=== PATIENT | female | born 1950 | race Caucasian/White ===

== ENCOUNTER 2018-07-05 10:33 | Inpatient (IN) ==
[2018-07-05] MEDS ORDERED: METOPROLOL TARTRATE 1 MG/ML VIAL IV STA (10:51)
[2018-07-05 11:34] LABS: Basophils # (auto) 0.03 K/uL (0-0.2); Basophils % (auto) 0.4 %; Eosinophils # (auto) 0.23 K/uL (0-0.5); Hematocrit (blood only) 41.7 % (37-47); Hemoglobin 14.5 g/dL (12.0-16.0); Immature Granulocytes # (auto) 0.03 K/uL (0.00-0.02); Immature Granulocytes % (auto) 0.4 %; Lymphocytes % (auto) 29.1 %; Mean Corpuscular Hgb Conc 34.8 g/dL (32-36); Mean Corpuscular Volume 88.7 fL (80-100); Mean Platelet Volume 11.2 fL (7.4-10.4); Monocytes # (auto) 0.56 K/uL (0.11-0.59); Monocytes % (auto) 7.4 %; Neutrophils # (auto) 4.51 K/uL (1.4-6.5); Neutrophils % (auto) 59.7 %; Platelet Count 281 K/uL (130-400); RDW Coefficient of Variation 14.2 % (11.5-14.5); RDW Standard Deviation 45.9 fL (36.4-46.3); White Blood Count 7.56 K/uL (4.8-10.8)
--- NOTE | 2018-07-05 11:34 | XRay Report ---
XR chest 1V portable CLINICAL HISTORY: atrial fib COMPARISON STUDY: 06/20/2018 FINDINGS: The cardiac and mediastinal contours are normal. There is no evidence of focal pulmonary co nsolidation. There is no evidence of failure. No pleural effusions are visualized.[ IMPRESSION: No active disease in the chest. Electronically signed by: Maynor Melendez M.D. 07/05/2018 11:33 AM
[2018-07-05 11:51] LABS: Albumin Level 3.8 gm/dl (3.4-5.0); BUN Creatinine Ratio 15.3 (10-20); Calcium 9.8 mg/dl (8.5-10.1); Creatinine Clr Calc Pharmacy 57.9 ml/min; Est GFR (Non-African American) 46.6; Magnesium 2.2 mg/dl (1.8-2.4); Potassium 3.2 mmol/L (3.5-5.1)
--- NOTE | 2018-07-05 12:02 | Emergency Department Note ---
Entered by Kira Landers acting as a scribe for History of Present Illness General Chief complaint: Cardiac Assessment Stated complaint: RAPID HEART RATE Source: patient Mode of arrival: ambulatory Limitations: no limitations History of Present Illness Provider complaint: Cardiac assessment Onset (ago): hour(s) (today) Location: chest Pain Consistency: + other (episode) Quality: + other (cardiac assessment for tachycardia) Associated symptoms: + other (Additional symptoms: leg cramp (now-resolved)); no chest pain The patient is a 67 year old female with a history of pericarditis and a UTI who presents to the Emergency Room with complaints of palpitations starting earlier today. The patient reports that she had an ablation on June 17 in [place]. She states that she subsequently saw Dr. Larkin and had a few medication changes but was otherwise doing well. However, she notes that she experienced a leg cramp last night and consequently had difficulty falling asleep. She reports that she then woke up this morning and thought that she was in atrial fibrillation. The p atient states that her EKG on her phone indicated a tachycardic heart rate. She notes that her heart did not stop racing although she did not have any chest pain. Per , the patient's heart rate finally seemed to slow after the patient had a sneezing fit on the way to the ED. The patient reports that she is on Eloquis and was taken off of Lisinopril this week. She adds that she was also taken off Metoprolol a while ago. Home Medications Home Medications Medication Instructions Recorded Confirmed Type acetaminophen [Tylenol Extra 500 mg PO Q6H PRN 06/20/18 07/05/18 History Strength] acetaminophen [Tylenol] 325 mg PO Q6H PRN 06/20/18 07/05/18 History amiodarone 200 mg PO BID 06/20/18 07/05/18 History apixaban [Eliquis] 5 mg PO BID 06/20/18 07/05/18 History coenzyme Q10 [CoQ-10] 100 mg PO QDL 06/20/18 07/05/18 History furosemide 40 mg PO QAM 06/20/18 07/05/18 History lorazepam 0.5 mg PO DAILY PRN 06/20/18 07/05/18 History omeprazole 40 mg PO QAM 06/20/18 07/05/18 History vit B comp no.7-hqoal-G-biotin 1 tab PO QDL 06/20/18 07/05/18 History [[facility] Rx] vitamin E 400 unit PO QDL 06/20/18 07/05/18 History colchicine 0.6 mg PO QDL 07/05/18 07/05/18 History spironolactone 25 mg PO QAM 07/05/18 07/05/18 History Allergies Allergy/AdvReac Type Severity Reaction Status Date / Time amlodipine AdvReac Severe headach/vom Unverified 07/05/18 12:18 itting Penicillins AdvReac Unknown Unknown Unverified 07/05/18 12:18 ChloraPrep AdvReac Intermediate red, itchy Uncoded 07/05/18 12:18 Past Med/Surg History Medical History DVT prophylaxis Hypokalemia (Acute) History of pericarditis Atrial fibrillation with RVR (Chronic) Pericarditis (Acute) UTI (urinary tract infection) (Acute) Elevated troponin (Acute) Atrial fibrillation Surgical History Status post creation of pericardial window Social History Preferred Language: Amharic Communication Ability: Effective Systems Librarian Required: No Beliefs That Will Affect Care: None marital status: Current Living Situation: Spouse current occupational status: retired Other Information That Helps Us Care for You: No Feels Safe at Home: Yes Safety Concerns: Feels Safe At This Time Smoking Status: Never smoker Do You Dip or Chew Tobacco: No Second Hand Exposure: No Tobacco Cessation Education Requested by Patient: No Hx Alcohol Use: No Hx Substance Use: No Review of Systems See HPI for pertinent positives & negatives. and A total of 10 systems reviewed and were otherwise negative Physical Exam Vital Signs Vital Signs - 24 hr 07/06/18 03:45 07/06/18 08:00 07/06/18 08:14 Temperature 36.4 C L 36.7 C Temperature Source Oral Oral Pulse Rate 90 Pulse Rate [Right Finger] 88 108 H Respiratory Rate 18 19 Blood Pressure Blood Pressure [Right Arm] 105/53 L 120/72 Blood Pressure Mean [Right Arm] 70 88 Blood Pressure Position [Right Arm] Lying Sitting Pulse Oximetry 95 95 Oxygen Delivery Method CPAP 07/06/18 09:23 07/06/18 11:24 07/06/18 15:12 Temperature 36.6 C 36.6 C Temperature Source Oral Oral Pulse Rate 110 H Pulse Rate [Right Finger] 90 87 Respiratory Rate 19 19 Blood Pressure 120/72 Blood Pressure [Right Arm] 140/84 133/74 Blood Pressure Mean [Right Arm] 102 93 Blood Pressure Position [Right Arm] Sitting Sitting Pulse Oximetry 96 96 Oxygen Delivery Method Room Air Room Air 07/06/18 16:56 07/06/18 20:03 Temperature 36.4 C L Temperature Source Oral Pulse Rate 84 Pulse Rate [Right Finger] Respiratory Rate 18 Blood Pressure Blood Pressure [Right Arm] 161/76 H Blood Pressure Mean [Right Arm] 104 Blood Pressure Position [Right Arm] Pulse Oximetry 98 Oxygen Delivery Method Room Air Vital signs reviewed. General: Obese, generally well-appearing female, in no significant distress. HEENT: No scleral icterus, PERRLA, neck supple. Atraumatic. Cardiovascular: Regular rate and rapid rhythm with occasional ectopy, no extra sounds. Pulmonary: Clear to auscultation bilaterally, normal work of breathing. Abdomen: Soft, nontender, nondistended, positive bowel sounds. Musculoskeletal: Atraumatic, no peripheral edema. Neurologic: Patient awake alert and oriented x 3 Skin: Warm, dry, no rash Course 1048: The patient was evaluated in room C1B, and a complete history and physical examination were performed. 1308: I checked on the patient and updated her on her results. 1429: I reviewed the patient's case with Oriana Lopez. Dr. De La Rosa will evaluate the patient for further management. 1432: Upon reevaluation, the patient is resting comfortably. I discussed laboratory and radiographic results with her. She verbalized agreement of the treatment plan. The patient will be evaluated for further management and care. Consultations Consultation #1: I reviewed the patient's case with Oriana Lopez. Dr. De La Rosa will evaluate the patient for further management. Time: 14:29 Administered Medications Amiodarone HCl (Cordarone) 200 mg PO BID [facility] Stop: 08/04/18 20:59 Last Admin: 07/06/18 19:46 Dose: 200 mg Documented by: [id number] Admin: 07/06/18 07:37 Dose: 200 mg Documented by: [id number] Admin: 07/05/18 20:17 Dose: 200 mg Documented by: [id number] Apixaban (Eliquis) 5 mg PO BID [facility] Stop: 08/04/18 20:59 Last Admin: 07/06/18 19:46 Dose: 5 mg Documented by: [id number] Admin: 07/06/18 07:37 Dose: 5 mg Documented by: [id number] Admin: 07/05/18 20:17 Dose: 5 mg Documented by: [id number] Colchicine (Colcrys) 0.6 mg PO QDL [facility] Stop: 08/05/18 11:29 Last Admin: 07/06/18 11:33 Dose: 0.6 mg Documented by: [id number] Furosemide (Lasix) 40 mg PO QAM [facility] Stop: 08/05/18 08:59 Last Admin: 07/06/18 07:38 Dose: 40 mg Documented by: [id number] Amiodarone HCl/Dextrose (Nexterone / D5w) 360 mg in 200 mls @ 16.667 mls/hr IV .Q12H [facility] Stop: 08/05/18 14:54 Last Admin: 07/06/18 14:44 Dose: 0.5 mg/min, 16.7 mls/hr Documented by: [id number] Cosigned by: [id number] Lorazepam (Ativan) 0.5 mg PO DAILY PRN PRN Reason: Anxiety Stop: 08/04/18 15:57 Last Admin: 07/06/18 00:43 Dose: 0.5 mg Documented by: [id number] Pantoprazole Sodium (Protonix) 40 mg PO [facility]; Protocol Stop: 08/05/18 08:59 Last Admin: 07/06/18 07:38 Dose: 40 mg Documented by: [id number] Potassium Chloride (Klor-Con M10) 40 meq PO BID [facility] Stop: 07/07/18 21:01 Last Admin: 07/06/18 19:46 Dose: 40 meq Documented by: [id number] Admin: 07/06/18 09:23 Dose: Not Given Documented by: [id number] [facility]actone (Ald[facility]one) [facility] Stop: 08/05/18 08:59 Last Admin: 07/06/18 07:37 Dose: 25 mg Documented by: [id number] Vitamin B Complex/Folic Acid (Nephrocaps) 1 cap PO QDL [facility]; Protocol Stop: 08/05/18 11:29 Last Admin: 07/06/18 11:33 Dose: 1 cap Documented by: [id number] Vitamin E (Vitamin E) 400 units PO QDL [facility] Stop: 08/05/18 11:29 Last Admin: 07/06/18 11:33 Dose: 400 units Documented by: [id number] Discontinued Medications Amiodarone HCl/Dextrose (Nexterone / D5w) 150 mg in 100 mls @ 600 mls/hr IV ONE STA Stop: 07/06/18 09:03 Last Infusion: 07/06/18 09:34 Dose: 0 mls/hr Documented by: [id number] Cosigned by: [id number] Admin: 07/06/18 09:23 Dose: 600 mls/hr Documented by: [id number] Cosigned by: [id number] Amiodarone HCl/Dextrose (Nexterone / D5w) 360 mg in 200 mls @ 33.333 mls/hr IV .Q6H [facility] Stop: 07/06/18 14:59 Last Infusion: 07/06/18 14:44 Dose: 0 mg/min, 0 mls/hr Documented by: [id number] Cosigned by: [id number] Admin: 07/06/18 09:25 Dose: 1 mg/min, 33.3 mls/hr Documented by: [id number] Cosigned by: [id number] Metoprolol Succinate (Toprol Xl) 25 mg PO NOW STA Stop: 07/05/18 13:19 Last Admin: 07/05/18 13:35 Dose: 25 mg Documented by: [id number] Metoprolol Tartrate (Lopressor) 5 mg IV NOW STA Stop: 07/05/18 10:52 Last Admin: 07/05/18 11:10 Dose: 4 mg Documented by: [id number] Metoprolol Tartrate (Lopressor) 2.5 mg IV NOW STA Stop: 07/06/18 09:08 Last Admin: 07/06/18 09:23 Dose: 2.5 mg Documented by: [id number] Potassium Chloride (Klor-Con M20) 40 meq PO NOW STA Stop: 07/05/18 13:10 Last Admin: 07/05/18 13:34 Dose: 40 meq Documented by: [id number] Potassium Chloride (Klor-Con M20) 40 meq PO NOW STA Stop: 07/06/18 08:08 Last Admin: 07/06/18 08:27 Dose: 40 meq Documented by: [id number] Medical Decision Making Differential Diagnosis Differential diagnosis: Etiologies such as premature contractions, electrolyte abnormality, cardiac dysrhythmia, thyroid dysfunction, pulmonary embolism, infection, gastr ointestinal, as well as others were entertained. Medical Records Attestation: I reviewed the patient's medical records. Home Medications Current Medication List: was personally reviewed by me Laboratory Data Attestation: I reviewed the patient's lab results. Result diagrams: 07/05/18 11:08 07/06/18 06:07 Lab Results 07/05/18 07/05/18 07/05/18 Range/Units 11:08 11:08 13:21 WBC 7.56 (4.8-10.8) K/uL RBC 4.70 (4.2-5.4) M/uL Hgb 14.5 (12.0-16.0) g/dL Hct 41.7 (37-47) % MCV 88.7 (80-100) fL MCH 30.9 (25-34) pg MCHC 34.8 (32-36) g/dL RDW Std Deviation 45.9 (36.4-46.3) fL RDW Coeff of Cornell 14.2 (11.5-14.5) % Plt Count 281 (130-400) K/uL MPV 11.2 H (7.4-10.4) fL Immature Gran % (Auto) 0.4 % Neut % (Auto) 59.7 % Lymph % (Auto) 29.1 % [place] % (Auto) 7.4 % Eos % (Auto) 3.0 % Baso % (Auto) 0.4 % Immature Gran # (Auto) 0.03 H (0.00-0.02) K/uL Neut # (Auto) 4.51 (1.4-6.5) K/uL Lymph # (Auto) 2.20 (1.2-3.4) K/uL [place] # (Auto) 0.56 (0.11-0.59) K/uL Eos # (Auto) 0.23 (0-0.5) K/uL Baso # (Auto) 0.03 (0-0.2) K/uL Sodium 141 (136-145) mmol/L Potassium 3.2 L (3.5-5.1) mmol/L Chloride 107 (98-107) mmol/L Carbon Dioxide 25 (21-32) mmol/L Anion Gap 10.0 (3-11) BUN 19 H (7-18) mg/dl Creatinine 1.21 H (0.6-1.2) mg/dl Est Cr Clr Drug Dosing 57.9 ml/min Est GFR ( Amer) 54.0 Est GFR (Non-Af Amer) 46.6 BUN/Creatinine Ratio 15.3 (10-20) Glucose 107 H (70-99) mg/dl Calcium 9.8 (8.5-10.1) mg/dl Magnesium 2.2 (1.8-2.4) mg/dl Total Bilirubin 0.8 (0.2-1) mg/dl Direct Bilirubin (0-0.2) mg/dl AST 61 H (15-37) U/L ALT 90 H (12-78) U/L Alkaline Phosphatase 115 (45-117) U/L Troponin I 0.073 H* 0.123 H* (0-0.045) ng/ml Total Protein 7.3 (6.4-8.2) gm/dl Albumin 3.8 (3.4-5.0) gm/dl Globulin 3.5 (2.5-4.0) gm/dl Albumin/Globulin Ratio 1.1 (0.9-2) TSH 2.530 (0.300-4.500) uIu/ml 07/05/18 07/06/18 07/06/18 Range/Units 17:59 00:15 06:07 WBC (4.8-10.8) K/uL RBC (4.2-5.4) M/uL Hgb (12.0-16.0) g/dL Hct (37-47) % MCV (80-100) fL MCH (25-34) pg MCHC (32-36) g/dL RDW Std Deviation (36.4-46.3) fL RDW Coeff of Cornell (11.5-14.5) % Plt Count (130-400) K/uL MPV (7.4-10.4) fL Immature Gran % (Auto) % Neut % (Auto) % Lymph % (Auto) % [place] % (Auto) % Eos % (Auto) % Baso % (Auto) % Immature Gran # (Auto) (0.00-0.02) K/uL Neut # (Auto) (1.4-6.5) K/uL Lymph # (Auto) (1.2-3.4) K/uL [place] # (Auto) (0.11-0.59) K/uL Eos # (Auto) (0-0.5) K/uL Baso # (Auto) (0-0.2) K/uL Sodium 142 (136-145) mmol/L Potassium 3.3 L (3.5-5.1) mmol/L Chloride 107 (98-107) mmol/L Carbon Dioxide 25 (21-32) mmol/L Anion Gap 10.0 (3-11) BUN 22 H (7-18) mg/dl Creatinine 1.20 (0.6-1.2) mg/dl Est Cr Clr Drug Dosing 58.4 ml/min Est GFR ( Amer) 54.5 Est GFR (Non-Af Amer) 47.1 BUN/Creatinine Ratio 18.3 (10-20) Glucose 104 H (70-99) mg/dl Calcium 9.4 (8.5-10.1) mg/dl Magnesium (1.8-2.4) mg/dl Total Bilirubin (0.2-1) mg/dl Direct Bilirubin (0-0.2) mg/dl AST (15-37) U/L ALT (12-78) U/L Alkaline Phosphatase (45-117) U/L Troponin I 0.208 H* 0.221 H* (0-0.045) ng/ml Total Protein (6.4-8.2) gm/dl Albumin (3.4-5.0) gm/dl Globulin (2.5-4.0) gm/dl Albumin/Globulin Ratio (0.9-2) TSH (0.300-4.500) uIu/ml 07/06/18 Range/Units 06:07 WBC (4.8-10.8) K/uL RBC (4.2-5.4) M/uL Hgb (12.0-16.0) g/dL Hct (37-47) % MCV (80-100) fL MCH (25-34) pg MCHC (32-36) g/dL RDW Std Deviation (36.4-46.3) fL RDW Coeff of Cornell (11.5-14.5) % Plt Count (130-400) K/uL MPV (7.4-10.4) fL Immature Gran % (Auto) % Neut % (Auto) % Lymph % (Auto) % [place] % (Auto) % Eos % (Auto) % Baso % (Auto) % Immature Gran # (Auto) (0.00-0.02) K/uL Neut # (Auto) (1.4-6.5) K/uL Lymph # (Auto) (1.2-3.4) K/uL [place] # (Auto) (0.11-0.59) K/uL Eos # (Auto) (0-0.5) K/uL Baso # (Auto) (0-0.2) K/uL Sodium (136-145) mmol/L Potassium (3.5-5.1) mmol/L Chloride (98-107) mmol/L Carbon Dioxide (21-32) mmol/L Anion Gap (3-11) BUN (7-18) mg/dl Creatinine (0.6-1.2) mg/dl Est Cr Clr Drug Dosing ml/min Est GFR ( Amer) Est GFR (Non-Af Amer) BUN/Creatinine Ratio (10-20) Glucose (70-99) mg/dl Calcium (8.5-10.1) mg/dl Magnesium (1.8-2.4) mg/dl Total Bilirubin 0.7 (0.2-1) mg/dl Direct Bilirubin 0.2 (0-0.2) mg/dl AST 49 H (15-37) U/L ALT 84 H (12-78) U/L Alkaline Phosphatase 87 (45-117) U/L Troponin I 0.217 H* (0-0.045) ng/ml Total Protein 6.4 (6.4-8.2) gm/dl Albumin 3.2 L (3.4-5.0) gm/dl Globulin (2.5-4.0) gm/dl Albumin/Globulin Ratio (0.9-2) TSH (0.300-4.500) uIu/ml Imaging Data Radiologist's Impression: Radiology results as stated below per my review and the radiologist's interpretation: XR chest 1V portable CLINICAL HISTORY: atrial fib COMPARISON STUDY: 06/20/2018 FINDINGS: The cardiac and mediastinal contours are normal. There is no evidence of focal pulmonary consolidation. There is no evidence of failure. No pleural effusions are visualized.[ IMPRESSION: No active disease in the chest. Electronically signed by: Maynor Melendez M.D. 07/05/2018 11:33 AM ECG Data Attestation: I personally reviewed and interpreted this ECG as follows: Indication: other (cardiac assessment) Rate (beats per minute): 107 Rhythm: sinus tachycardia (wide complex) Findings: + other (QTC is 528), + PVC (likely in a pattern of trigeminy versus atrial fibrillation) and + RBBB Comparison ECG Date: from (06/20/18) Change: the following changes noted (The current trigeminy has replaced a normal sinus rhythm) Additional Comments: Second EKG findings: wide complex tachycardia likely to be atrial flutter, 138 BPM, prolonged QTC of 539, RBBB. Third EKG findings: rate controlled atrial flutter with variable AV block, 84 BPM, left anterior fascicular block, QTC is 555, RBBB. Blood Pressure Blood Pressure Findings: Normal blood pressure MDM Narrative This pt was evaluated and appeared to be anxious, but in no distress. IV access was obtained and lab work was drawn. Pt was placed on the cardiac mointor. IV metoprolol was adminstered for rapid atrial fib/ flutter. Rate improved. XR reveals is negative. Lab work reveals a mildly low K, 40 MEq was given. Po metoprolol was given 25 mg. Trop was elevated, likely demand mediated. It was repeated at 2.5 hrs and continued to rise. Pt is on Eliquis currently. Pt was d?w Dr. De La Rosa of the hospitalist service for further management. Pt and family are aware of the plan and agree. Impression & Plan Atrial fibrillation, rapid, Elevated troponin Discharge Plan Visit Data *Final* Discharge Date/Time: 07/05/18 15:21 Chief Complaint: Cardiac Assessment Stated Complaint: RAPID HEART RATE ED Provider: Jessenia Melvin Discharge Problem: Atrial fibrillation, rapid, Elevated troponin Patient Disposition: Admitted As Inpatient Discharge Instructions Interventions: ED Discharge Assessment Last Done: 07/05/18 15:21 The scribe's documentation has been prepared under my direction and personally reviewed by me in its entirety. I confirm that the note above accurately reflects all work, treatment, procedures, and medical decision making performed by me.
[2018-07-05 12:04] LABS: Albumin Globulin Ratio 1.1 (0.9-2); Bilirubin,Total 0.8 mg/dl (0.2-1); Globulin 3.5 gm/dl (2.5-4.0); Total Protein 7.3 gm/dl (6.4-8.2); Troponin I 0.073 ng/ml (0-0.045)
[2018-07-05] MEDS ORDERED: POTASSIUM CHLORIDE 20 MEQ TABCR PO STA (13:09)
[2018-07-05] MEDS ORDERED: METOPROLOL SUCC 25MG EXT REL TAB PO STA (13:18)
--- NOTE | 2018-07-05 15:05 | History & Physical Report ---
Date of Service July 05, 2018 Assessment & Plan (1) Atrial fibrillation with RVR: Her rate has been controlled with IV and oral metoprolol. Observation bed with telemetry. Continue amiodarone. Cardiology consultation pending Present on Admission?: Yes (2) Hypokalemia: Oral potassium given in the ED. Repeat level in the morning Present on Admission?: Yes (3) Elevated troponin: Telemetry. Serial troponin enzymes. Serial EKGs Present on Admission?: Yes (4) History of pericarditis: Stable (5) Status post creation of pericardial window: Stable (6) DVT prophylaxis: Continue Eliquis History of Present Illness Chief Complaint: Palpitations Primary Care Provider: Vince Wyatt MD 67-year-old female with a history of paroxysmal atrial fibrillation. She underwent a ablation treatment in April of this year. She recently had her amiodarone decreased from 3 times daily to twice daily dosing. She has been off metoprolol for some time according to her history. She awoke this morning with recurrent palpitations. She had no associated chest pain, shortness of breath, lightheadedness. She came to the ED for evaluation. She was found to be in recurrent atrial fibrillation with rapid ventricular rate. In the ED she was given intravenous metoprolol and oral Toprol-XL. She was also given a dose of potassium. Troponin is slightly elevated, probably from demand ischemia. No history of occlusive coronary artery disease. Currently she is asymptomatic and the atrial fibrillation is controlled. Vital signs are stable. She will be placed on observation at this time and cardiology will be consulted. Allergies Allergy/AdvReac Type Severity Reaction Status Date / Time amlodipine AdvReac Severe headach/vom Unverified 07/05/18 12:18 itting Penicillins AdvReac Unknown Unknown Unverified 07/05/18 12:18 ChloraPrep AdvReac Intermediate red, itchy Uncoded 07/05/18 12:18 Home Medications Home Medications Medication Instructions Recorded Confirmed Type acetaminophen [Tylenol Extra 500 mg PO Q6H PRN 06/20/18 07/05/18 History Strength] acetaminophen [Tylenol] 325 mg PO Q6H PRN 06/20/18 07/05/18 History amiodarone 200 mg PO BID 06/20/18 07/05/18 History apixaban [Eliquis] 5 mg PO BID 06/20/18 07/05/18 History coenzyme Q10 [CoQ-10] 100 mg PO QDL 06/20/18 07/05/18 History furosemide 40 mg PO QAM 06/20/18 07/05/18 History lorazepam 0.5 mg PO DAILY PRN 06/20/18 07/05/18 History omeprazole 40 mg PO QAM 06/20/18 07/05/18 History vit B comp no.1-qeuny-L-biotin 1 tab PO QDL 06/20/18 07/05/18 History [[facility] Rx] vitamin E 400 unit PO QDL 06/20/18 07/05/18 History colchicine 0.6 mg PO QDL 07/05/18 07/05/18 History spironolactone 25 mg PO QAM 07/05/18 07/05/18 History Past Med/Surg History Medical History Pericarditis (Acute) UTI (urinary tract infection) (Acute) Elevated troponin (Acute) Atrial fibrillation Social History Preferred Language: Turkish marital status: current occupational status: retired Feels Safe at Home: Yes Smoking Status: Never smoker Review of Systems Review of Systems: All systems reviewed & are unremarkable except as noted in HPI & below Physical Exam Constitutional: WD/WN, vitals as above Eyes: PERRL, conjunctivae normal, anicteric sclerae ENMT: external ear and nose normal, oropharynx normal Neck: trachea midline, no thyromegaly Respiratory: normal respiratory effort, lungs clear to auscultation Cardiovascular: Irregular rhythm. Normal S1 and S2. No murmur Gastrointestinal (Abdomen): normal bowel sounds, soft, nontender, no hepatosplenomegaly Musculoskeletal: no cyanosis or clubbing, extremities motor strength 5/5 Skin: no rashes, warm and dry Neurologic: CN's II-XI intact bilaterally and moves all extremities; no focal motor deficits Results & Data Vital Signs (Past 12 Hours) Vital Signs Temp Pulse Pulse Resp BP BP Pulse Ox 07/05/18 13:34 46 L 22 145/77 H 96 07/05/18 13:33 91 H 25 H 07/05/18 13:01 92 H 15 137/67 96 07/05/18 13:00 92 H 24 98 05/12/19 12:31 87 23 135/69 95 07/05/18 12:30 102 H 17 98 07/05/18 12:01 46 L 23 113/66 96 07/05/18 12:00 46 L 16 97 07/05/18 11:33 91 H 17 120/67 96 07/05/18 11:32 95 07/05/18 11:23 45 L 15 121/56 L 96 07/05/18 11:19 83 20 132/65 94 07/05/18 11:14 143 H 22 112/79 95 07/05/18 11:10 143 H 108/88 07/05/18 11:08 144 H 24 108/88 95 07/05/18 11:00 132 H 20 97/80 L 95 07/05/18 10:58 36.6 C 123 H 20 97/80 L 94 07/05/18 10:50 145 H 19 97 07/05/18 10:46 146 H 15 145/98 H 98 07/05/18 10:45 36.6 C 116 H 20 145/98 H 95 Laboratory Results 07/05/18 11:08 07/05/18 11:08
[2018-07-05] MEDS ORDERED: ZOLPIDEM TARTRATE 5 MG TAB PO PRN (15:58)
[2018-07-05] MEDS ORDERED: ACETAMINOPHEN 500 MG TAB PO PRN (15:58)
[2018-07-05] MEDS ORDERED: ACETAMINOPHEN 325 MG TAB PO PRN (15:58)
[2018-07-05] MEDS ORDERED: ONDANSETRON INJ 2 MG/ML 2 ML VIAL IV PRN (15:58)
[2018-07-05] MEDS ORDERED: ALUMINUM/MAGNESIUM SUSP 30 ML UDC PO PRN (15:58)
[2018-07-05] MEDS: APIXABAN 5 MG TABLET PO SCH (20:17)
[2018-07-05] MEDS: AMIODARONE 200 MG TAB PO SCH (20:17)
[2018-07-06] MEDS: LORazepam 0.5 MG TAB PO PRN ×2 (00:43→21:43)
[2018-07-06 07:17] LABS: BUN Creatinine Ratio 18.3 (10-20); Calcium 9.4 mg/dl (8.5-10.1); Creatinine Clr Calc Pharmacy 58.4 ml/min; Est GFR (African American) 54.5; Est GFR (Non-African American) 47.1; Potassium 3.3 mmol/L (3.5-5.1)
[2018-07-06] MEDS: SPIRONOLACTONE 25 MG TAB PO SCH (07:37)
[2018-07-06] MEDS: AMIODARONE 200 MG TAB PO SCH ×2 (07:37→19:46)
[2018-07-06] MEDS: APIXABAN 5 MG TABLET PO SCH ×2 (07:37→19:46)
[2018-07-06] MEDS: PANTOprazole 40 MG TAB PO SCH (07:38)
[2018-07-06] MEDS: FUROSEMIDE 40 MG TAB PO SCH (07:38)
[2018-07-06 07:57] LABS: Albumin Level 3.2 gm/dl (3.4-5.0); Bilirubin Direct 0.2 mg/dl (0-0.2); Bilirubin,Total 0.7 mg/dl (0.2-1); Total Protein 6.4 gm/dl (6.4-8.2); Troponin I 0.217 ng/ml (0-0.045)
[2018-07-06] MEDS ORDERED: POTASSIUM CHLORIDE 20 MEQ TABCR PO STA (08:07)
[2018-07-06] MEDS ORDERED: AMIODARONE IV BOLUS / DRIP IV STA (08:54)
[2018-07-06] MEDS ORDERED: AMIODARONE / D5W 150 MG/100 ML BAG IV STA (08:54)
[2018-07-06] MEDS ORDERED: AMIODARONE / D5W 360 MG/200 ML BAG IV SCH (09:00)
[2018-07-06] MEDS ORDERED: METOPROLOL TARTRATE 1 MG/ML VIAL IV STA (09:07)
[2018-07-06] MEDS: POTASSIUM CHLORIDE 10 MEQ TABCR PO SCH ×2 (09:23→19:46)
--- NOTE | 2018-07-06 10:21 | Hospitalist Progress Note ---
Date of Service July 06, 2018 Assessment & Plan (1) Atrial fibrillation with RVR: -patient with recent ablation in [place] with Dr. Powell. - amio gtt per cardiology in addition to po - continue telemetry monitoring - troponin peaked at 0.221 - likely demand ischemia from rapid rate on admission - continue Eliquis (2) Hypokalemia: replaced (3) Elevated troponin: See above (4) History of pericarditis: Stable (5) Status post creation of pericardial window: Stable (6) Elevated LFTs: AST and ALT peaked at 61 and 90 and are trending down. No abdominal pain, nausea or vomiting (7) DVT prophylaxis: Continue Eliquis Subjective Ms De La Vega feels somewhat better today though she does still have some exertional dyspnea. Her heart is no longer racing. She does not have chest pain. She has been in and out of A.fib on the monitor. Review of Systems Review of Systems: All systems reviewed & are unremarkable except as noted in HPI & below Physical Exam Physical Exam: General: no distress Eyes: normal inspection, PERLL Respiratory: chest non tender, clear to auscultation, normal breath sounds, no respiratory distress, no accessory muscle use Cardiac: regular rate and rhythm, no rub or gallop, no murmur, no edema, no jvd GI/: active bowel sounds, no abd pain or tenderness, soft, non distended Extremities: normal range of motion, normal strength, non tender Neuro/Psych: alert and oriented x 3, normal mood and affect Skin: normal color, dry Results & Data Vital Signs (Past 12 Hours) Vital Signs Temp Pulse Pulse Resp BP BP Pulse Ox 07/06/18 09:23 110 H 120/72 07/06/18 08:14 36.7 C 108 H 19 120/72 95 07/06/18 08:00 90 07/06/18 03:45 36.4 C L 88 18 105/53 L 95
--- NOTE | 2018-07-06 10:39 | Consultation Report ---
DATE OF CONSULTATION: 07/06/2018 REQUESTING PHYSICIAN: Oliverio De La Rosa MD X RAY TECHNOLOGIST: Sinan Larkin DO, [facility]. REASON FOR CONSULTATION: New onset atrial flutter. Dear Dr. De La Rosa: Thank you for requesting a cardiology consultation on Kat with regards to her atrial arrhythmias and recent AFib ablation in May 2018. She awoke Friday morning, she had worn her CPAP the night before. She described palpitations with feeling like she had fluttering into her throat. This sensation was different than her normal AFib sensation. She notes the rates were fast into the 170s and even 180s and she had some lightheadedness with it. She notes it made her feel significantly fatigued. She wanted to go to [place], it continued and given the fact she did not feel well, she came to the Emergency Room. An EKG reveals atypical atrial flutter with a rapid ventricular response and a right bundle branch block. She has been in the hospital overnight. She is still in atrial flutter at times with rates that remained fast. Emotionally, she seems spent with the idea that she just had an AFib ablation and has had a cardioversion and continues to have atrial arrhythmias. She denies any lightheadedness or dizziness this morning. She does not feel short of breath this morning. She denies any chest pain. Of note, she did have pericarditis after her procedure, she now can take a deep breath while on colchicine. She is not having any side effects related to colchicine. She denies any dark stools or black stools, bleeding or bruising. She is on chronic anticoagulation. She denies a cough, fevers, chills, or sweats. She notes in the morning when she wakes, her apnea-hypopnea index is around 2.2. The rest of review of systems is otherwise negative. PAST MEDICAL HISTORY: 1. Paroxysmal atrial fibrillation since 2016 with at least 7 cardioversions, status post AFib ablation, May 2018. 2. 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 3. Recurrent atrial arrhythmias June 2018 with atypical atrial flutter. 4. Hypertension, since the age of 20, which appears to be induced. 5. History of an RV biopsy July 2016, rule out amyloid disease which was negative. 6. Pericardial window secondary to pericardial effusion 10/2016. 7. Normal biventricular size and function by echo 02/2018 with moderate left atrial enlargement. 8. Chronic anticoagulation with Eliquis. 9. Fatty infiltration of her liver. 10. GERD. 11. Right bundle-branch block with left anterior fascicular block. FAMILY HISTORY: Dad at 45, stroke, he had a heart attack at 41. Mom from complications related to lymphoma. She had hypertension. SOCIAL HISTORY: She is . She denies any tobacco or alcohol. ALLERGIES: AMLODIPINE, CHLORHEXIDINE AND PENICILLIN. MEDICATIONS: Reviewed in electronic medical record. PHYSICAL EXAMINATION: GENERAL: She is awake, alert, oriented x3. She seems frustrated, given her recurrent atrial arrhythmias. VITAL SIGNS: Her heart rate is 108, her blood pressure is 120/72, respirations 19, her sats 95% on room air. HEENT: Her carotid upstrokes were difficult to feel given her rate, but they still appeared to be normal. Her jugular venous pressure was not elevated. She did not have carotid bruits. Her sclerae are anicteric. Her hearing is normal. LUNGS: Clear to auscultation bilaterally. No rales, rhonchi or wheezing. HEART: Irregular rate and rhythm. No appreciable murmurs, rubs or gallops. ABDOMEN: Soft, nontender, nondistended. Positive bowel sounds. EXTREMITIES: No clubbing, cyanosis or edema. PSYCHIATRIC: She appeared frustrated. DIAGNOSTIC STUDIES: EKG, atypical atrial flutter at a rate of 95 beats per minute, right bundle-branch block, left anterior fascicular block. LABORATORY STUDIES: Hemoglobin of 14.5, platelet count of 281. Peak troponin 0.221. Sodium 142, potassium 3.3, BUN 22, creatinine 1.2. TSH is normal at 2.53. Chest x-ray, no acute disease. IMPRESSION: 1. Recurrent atrial arrhythmias, now with atypical atrial flutter. 2. History of atrial fibrillation ablation, 05/2018. 3. Post-ablation pericarditis, 05/2018. 4. Obstructive sleep apnea, tolerating CPAP. 5. Normal biventricular size and function. 6. Chronic anticoagulation with apixaban. I made the following recommendations: 1. We will try to give her IV amiodarone with a bolus and drip and hopefully she will convert with amiodarone back into sinus rhythm. She has been on p.o. amiodarone for a month before her ablation and since her ablation. The other option if she does not convert, will be to consider cardioversion tomorrow. Unfortunately, she has had a significant number of cardioversions and she seems reluctant to consider this unless there are no other options. She remains on anticoagulation. I would try to give her a small dose of IV beta blockers and see if this helps convert her. In addition, she needs potassium replacement and I would check a magnesium level. We will continue to follow her with you. Further recommendations will be forthcoming. DESIREE
[2018-07-06] MEDS ORDERED: NON-FORMULARY MEDICATION (Coenzyme Q10 [Coq-10] 100 MG) PO SCH (11:30)
[2018-07-06] MEDS: TOCOPHERYL, DL-ALPHA 400 UNITS CAP PO SCH (11:33)
[2018-07-06] MEDS: NEPHROCAPS PO SCH (11:33)
[2018-07-06] MEDS: COLCHICINE 0.6 MG TAB PO SCH (11:33)
[2018-07-06] MEDS: AMIODARONE / D5W 360 MG/200 ML BAG IV SCH (14:44)
[2018-07-06] MEDS ORDERED: DiphenhydrAMINE 2%/ZINC 0.1% CREAM 28GM TUBE EXT ONE (21:45)
[2018-07-07] MEDS: AMIODARONE / D5W 360 MG/200 ML BAG IV SCH (02:27)
--- NOTE | 2018-07-07 07:28 | Anesthesiology Consultation ---
Date of Service July 07, 2018 Assessment & Plan (1) Encounter for pre-operative examination: Chart Review Chart Review: Acceptable Risk for Surgery History Surgery Operation Date: 07/07/18 07:45 Proposed Procedures p Cardioversion Development Technician with Anesthesia - Sinan Larkin DO Height/Weight Height: 5 ft 6 in Weight: 111 kg Allergies Allergy/AdvReac Type Severity Reaction Status Date / Time amlodipine AdvReac Severe headach/vom Unverified 07/05/18 12:18 itting Penicillins AdvReac Unknown Unknown Unverified 07/05/18 12:18 ChloraPrep AdvReac Intermediate red, itchy Uncoded 07/05/18 12:18 Medications Home Medications Medication Instructions Recorded Confirmed Last Taken acetaminophen [Tylenol Extra 500 mg PO Q6H PRN 06/20/18 07/05/18 06/20/18 14:00 Strength] acetaminophen [Tylenol] 325 mg PO Q6H PRN 06/20/18 07/05/18 06/20/18 08:00 amiodarone 200 mg PO BID 06/20/18 07/05/18 07/05/18 apixaban [Eliquis] 5 mg PO BID 06/20/18 07/05/18 07/05/18 coenzyme Q10 [CoQ-10] 100 mg PO QDL 06/20/18 07/05/18 07/04/18 furosemide 40 mg PO QAM 06/20/18 07/05/18 07/05/18 lorazepam 0.5 mg PO DAILY PRN 06/20/18 07/05/18 Unknown omeprazole 40 mg PO QAM 06/20/18 07/05/18 07/05/18 vit B comp no.1-[id number]-P-biotin 1 tab PO QDL 06/20/18 07/05/18 07/04/18 [Merced-Matteo Rx] vitamin E 400 unit PO QDL 06/20/18 07/05/18 07/04/18 colchicine 0.6 mg PO QDL 07/05/18 07/05/18 07/04/18 spironolactone 25 mg PO QAM 07/05/18 07/05/18 07/05/18 Active Medications Generic Name Dose Route Start Last Admin Trade Name Freq PRN Reason Stop Dose Admin Amiodarone HCl 200 mg 07/05/18 21:00 07/06/18 19:46 Cordarone PO 08/04/18 20:59 200 mg BID AYAH Administration Apixaban 5 mg 07/05/18 21:00 07/06/18 19:46 Eliquis PO 08/04/18 20:59 5 mg BID AYAH Administration Colchicine 0.6 mg 07/06/18 11:30 07/06/18 11:33 Colcrys PO 08/05/18 11:29 0.6 mg QDL AYAH Administration Furosemide 40 mg 07/06/18 09:00 07/06/18 07:38 Lasix PO 08/05/18 08:59 40 mg QAM AYAH Administration Amiodarone HCl/Dextrose 360 mg in 200 mls @ 16.667 mls/hr 07/06/18 14:55 07/07/18 02:27 Nexterone / D5w IV 08/05/18 14:54 0.5 mg/min .Q12H AYAH 16.7 mls/hr Administration 0.5 MG/MIN Lorazepam 0.5 mg 07/05/18 15:58 07/06/18 21:43 Ativan PO 08/04/18 15:57 0.5 mg DAILY PRN Administration Anxiety Pantoprazole Sodium 40 mg 07/06/18 09:00 07/06/18 07:38 Protonix PO 08/05/18 08:59 40 mg QAM AYAH Administration Protocol Potassium Chloride 40 meq 07/06/18 09:10 07/06/18 19:46 Klor-Con M10 PO 07/07/18 21:01 40 meq BID AYAH Administration Spironolactone 25 mg 07/06/18 09:00 07/06/18 07:37 Aldactone PO 08/05/18 08:59 25 mg QAM AYAH Administration Vitamin B Complex/Folic Acid 1 cap 07/06/18 11:30 07/06/18 11:33 Nephrocaps PO 08/05/18 11:29 1 cap QDL AYAH Administration Protocol Vitamin E 400 units 07/06/18 11:30 07/06/18 11:33 Vitamin E PO 08/05/18 11:29 400 units QDL AYAH Administration Past Medical History Medical History DVT prophylaxis Hypokalemia (Acute) History of pericarditis Atrial fibrillation with RVR (Chronic) Elevated troponin (Inactive) Pericarditis (Inactive) UTI (urinary tract infection) (Inactive) CKD (chronic kidney disease) JIM on CPAP Atrial fibrillation Past Surgical History Surgical History Status post creation of pericardial window Social History Smoking Status: Never smoker Do You Dip or Chew Tobacco: No Hx Alcohol Use: No Hx Substance Use: No Physical Exam Vital Signs Last Vital Signs Temp 36.5 C 07/07/18 07:09 Pulse 96 H 07/07/18 07:09 Resp 18 07/07/18 07:09 BP 143/94 H 07/07/18 07:09 Pulse Ox 96 07/07/18 07:09 Testing Electrocardiogram Date: 07/07/18 Findings: + AFIB @ (90) rbbb Laboratory Results 07/05/18 11:08 07/06/18 06:07
--- NOTE | 2018-07-07 07:54 | Cardioversion ---
Date of Service July 07, 2018 The patient was brought to the cardiac catheterization laboratory in atrial flutter. Anesthesia was provided by the anesthesia service. Once fully sedated she was given a single shock of 100 J in a biphasic, sync mode with uatsdin of sinus rhythm. At the end of the procedure she was answering questions appropriately and moving her hands and feet. She will be observed in the [facility] and transfer back to the floor.
--- NOTE | 2018-07-07 07:58 | Cardiology Progress Note ---
Date of Service July 07, 2018 Subjective She is anxious for the procedure. The plan is to undergo cardioversion this morning. She still feels intermittent palpitations. She denies any lightheadedness or dizziness. She has any chest pain or chest pressure this morning. Results & Data Vital Signs (Past 12 Hours) Vital Signs Temp Pulse Pulse Resp BP Pulse Ox 07/07/18 07:09 36.5 C 96 H 18 143/94 H 96 07/07/18 03:37 36.6 C 94 H 18 145/84 H 95 07/07/18 00:36 85 07/06/18 23:54 36.5 C 93 H 18 127/58 L 95 07/06/18 20:03 36.4 C L 18 161/76 H 98 GENERAL: She is awake, alert, oriented x3. She seems frustrated, given her recurrent atrial arrhythmias. HEENT: Her carotid upstrokes were normal. Her jugular venous pressure was not elevated. She did not have carotid bruits. Her sclerae are anicteric. Her hearing is normal. LUNGS: Clear to auscultation bilaterally. No rales, rhonchi or wheezing. HEART: Irregular rate and rhythm. No appreciable murmurs, rubs or gallops. ABDOMEN: Soft, nontender, nondistended. Positive bowel sounds. EXTREMITIES: No clubbing, cyanosis or edema. PSYCHIATRIC: She appeared frustrated. IMPRESSION: 1. Recurrent atrial arrhythmias, now with atypical atrial flutter. 2. History of atrial fibrillation ablation, 05/2018. 3. Post-ablation pericarditis, 05/2018. 4. Obstructive sleep apnea, tolerating CPAP. 5. Normal biventricular size and function. 6. Chronic anticoagulation with apixaban. She underwent successful cardioversion this morning with the use of 100 J x 1 shock back to sinus rhythm She can be discharged home later today on amiodarone 200 mg twice daily She will remain on anticoagulation with apixaban 5 mg twice daily I would add low-dose beta-naif with Toprol-XL 12-1/2 mg nightly We will arrange for follow-up in the office in the next 2 weeks with a repeat EKG She needs to receive her dose of apixaban this morning She is to be discharged home on colchicine as well.
[2018-07-07] MEDS: SPIRONOLACTONE 25 MG TAB PO SCH (08:06)
[2018-07-07] MEDS: POTASSIUM CHLORIDE 10 MEQ TABCR PO SCH (08:06)
[2018-07-07] MEDS: APIXABAN 5 MG TABLET PO SCH (08:06)
[2018-07-07] MEDS: FUROSEMIDE 40 MG TAB PO SCH (08:07)
[2018-07-07] MEDS: PANTOprazole 40 MG TAB PO SCH (08:08)
[2018-07-07] MEDS: AMIODARONE 200 MG TAB PO SCH (08:08)
[2018-07-07 08:54] VITALS: TEMP 97.9
[2018-07-07] MEDS ORDERED: METOPROLOL SUCC 25MG EXT REL TAB PO SCH (09:00)
[2018-07-07 09:20] LABS: Albumin Level 3.3 gm/dl (3.4-5.0); BUN Creatinine Ratio 15.7 (10-20); Calcium 9.2 mg/dl (8.5-10.1); Est GFR (African American) 50.9; Est GFR (Non-African American) 43.9; Potassium 3.8 mmol/L (3.5-5.1)
[2018-07-07 09:31] LABS: Albumin Globulin Ratio 1.1 (0.9-2); Bilirubin,Total 0.5 mg/dl (0.2-1); Total Protein 6.3 gm/dl (6.4-8.2)
[2018-07-07] MEDS: TOCOPHERYL, DL-ALPHA 400 UNITS CAP PO SCH (11:18)
[2018-07-07] MEDS: COLCHICINE 0.6 MG TAB PO SCH (11:18)
[2018-07-07] MEDS: NEPHROCAPS PO SCH (11:18)
[2018-07-07 12:01] VITALS: BP 125/73; PULSE 86; O2SAT 96
--- NOTE | 2018-07-07 12:28 | Anesthesiology Progress Note ---
Date of Service July 07, 2018 Anesthesia Post Procedure Vital Signs Vital Signs: Temp Pulse Pulse Resp BP Pulse Ox 07/07/18 12:00 36.6 C 86 18 125/73 96 07/07/18 08:50 85 07/07/18 08:15 67 16 136/72 97 07/07/18 08:00 36.6 C 67 146/89 H 96 07/07/18 07:30 36.8 C 07/07/18 07:09 36.5 C 96 H 18 143/94 H 96 07/07/18 03:37 36.6 C 94 H 18 145/84 H 95 07/07/18 00:36 85 07/06/18 23:54 36.5 C 93 H 18 127/58 L 95 07/06/18 20:03 36.4 C L 18 161/76 H 98 07/06/18 16:56 84 07/06/18 15:12 36.6 C 87 19 133/74 96 Transfer of Care Handoff Completed per policy Notes Mental Status: alert / awake / arousable and participated in evaluation Patient Amnestic to Procedure: Yes Nausea / Vomiting: adequately controlled Pain: adequately controlled Airway Patency, RR, SpO2: stable & adequate BP & HR: stable & adequate Hydration State: stable & adequate Anesthetic Complications: no major complications apparent and Pt Satisfied with anesthetic care
--- NOTE | 2018-07-07 15:36 | Discharge Summary ---
Date of Service July 07, 2018 Admission HPI Per Admitting Provider 67-year-old female with a history of paroxysmal atrial fibrillation. She underwent a ablation treatment in April of this year. She recently had her amiodarone decreased from 3 times daily to twice daily dosing. She has been off metoprolol for some time according to her history. She awoke this morning with recurrent palpitations. She had no associated chest pain, shortness of breath, lightheadedness. She came to the ED for evaluation. She was found to be in recurrent atrial fibrillation with rapid ventricular rate. In the ED she was given intravenous metoprolol and oral Toprol-XL. She was also given a dose of potassium. Troponin is slightly elevated, probably from demand ischemia. No history of occlusive coronary artery disease. Currently she is asymptomatic and the atrial fibrillation is controlled. Vital signs are stable. She will be placed on observation at this time and cardiology will be consulted. Principal Diagnosis A. fib RVR Discharge Exam Constitutional WD/WN, vitals as above Respiratory normal respiratory effort, lungs clear to auscultation Cardiovascular RRR, no murmur, no edema Gastrointestinal (Abdomen) Inspection/Auscultation: abdomen normal to inspection and normal bowel sounds; abdomen not distended Percussion/Palpation: abdomen soft; abdomen nontender Musculoskeletal no cyanosis or clubbing, extremities motor strength 5/5 Skin no rashes, warm and dry Neurologic moves all extremities and awake Psychiatric A+Ox3, euthymic affect Discharge Data Allergies Allergy/AdvReac Type Severity Reaction Status Date / Time amlodipine AdvReac Severe headach/vom Unverified 07/05/18 12:18 itting Penicillins AdvReac Unknown Unknown Unverified 07/05/18 12:18 ChloraPrep AdvReac Intermediate red, itchy Uncoded 07/05/18 12:18 Consultations 07/05/18 14:27 ED Decision to Admit Stat 07/05/18 15:58 Consult Cardiology Routine Procedures Performed Operation Date: 07/07/18 07:45 Actual Procedures p Cardioversion - Sinan Larkin DO Hospital Course (1) Atrial fibrillation with RVR: - patient with recent ablation in [place] with Dr. Powell. - did not convert to SR with amiodarone drip - s/p ablation 07/07 - per cardiology - will discharge with 200 mg po amiodarone, metoprolol 12.5 mg hs, continue Eliquis and colchicine - SR following ablation, no palpitations or sob. - troponin peaked at 0.221 - likely demand ischemia from rapid rate on admission - continue Eliquis (2) Hypokalemia: replaced and resolved - will have patient recheck prp in two days (3) Elevated troponin: See above (4) History of pericarditis: Stable - continue colchicine (5) Status post creation of pericardial window: Stable (6) Elevated LFTs: AST and ALT have been around 87 and 48 over the past few days . No abdominal pain, nausea or vomiting. Could be medication related. Will have patient recheck her LFTs on and follow up with her primary care. Per admission chart, patient has been screened for Hepatitis C in the past. (7) DVT prophylaxis: Continue Eliquis Total Time Total Time Spent Total Time Spent (In Minutes): greater than 30 minutes Discharge Plan Discharge Items Patient Disposition: Home - Self-Care Reason For Visit: PALPITATIONS Discharge Diagnosis: Atrial fibrillation with rapid ventricular response Discharge Goals: Decrease discomfort and Improve disease control Activity: Resume your previous activity Activity Comment: gradually as tolerated Non-emergency contact: Primary Care Provider and Sales Representative Adding Machines Call non-emergency contact if: you have any medication questions and your symptoms worsen Follow-up/Referrals: Vince Wyatt MD [Primary Care Provider] - Diet: Heart Healthy Other Ambulatory Orders: Basic Metabolic Panel (Routine) Timeframe: 2 Days Location: Determined by Patient Ordered By: Shena Cummins Hepatic Panel (Routine) Timeframe: 2 Days Location: Determined by Patient Ordered By: Shena Cummins Addtl Provider Instructions: Please see your primary care provider within about a week. Please see cardiology within 2-3 weeks. You will have your blood drawn on and results tk go to your primary care provider Per cardiology: Remain on anticoagulation with apixaban 5 mg twice daily Add low-dose beta-naif with Toprol-XL 12.5 mg nightly Continue colchicine We will arrange for follow-up in the office in the next 2 weeks with a repeat EKG You had a cardioversion today and remained in sinus rhythm since. You should not drive or operate heavy machinery for 24 hours after the procedure. The day after your procedure, try to take it easy. Take medication as directed.Call your doctor if you notice skipped beats, a rapid heartbeat, or chest tightness. These may be signs that an irregular heartbeat has returned Prescriptions: New metoprolol succinate 25 mg Tablet Extended Release 24 Hr 12.5 mg PO QAM Qty: 30 RF: 1 Continued spironolactone 25 mg tablet 25 mg PO QAM RF: 0 colchicine 0.6 mg tablet 0.6 mg PO QDL RF: 0 furosemide 40 mg tablet 40 mg PO QAM RF: 0 acetaminophen [Tylenol] 325 mg Tablet 325 mg PO Q6H PRN (Reason: Pain) RF: 0 amiodarone 200 mg tablet 200 mg PO BID RF: 0 omeprazole 40 mg capsule,delayed release(DR/EC) 40 mg PO QAM RF: 0 acetaminophen [Tylenol Extra Strength] 500 mg Tablet 500 mg PO Q6H PRN (Reason: Pain) RF: 0 lorazepam 1 mg tablet 0.5 mg PO DAILY PRN (Reason: Anxiety) RF: 0 vitamin E 400 unit Capsule 400 unit PO QDL RF: 0 coenzyme Q10 [CoQ-10] 100 mg Capsule 100 mg PO QDL RF: 0 Merced-Matteo Rx 1-60-300 mg-mg-mcg tablet 1 tab PO QDL RF: 0 Eliquis 5 mg tablet 5 mg PO BID RF: 0 Stand-Alone Forms: [facility]/Other Patient Handouts: Cardioversion Discharge Orders: Discharge Order (Routine); Ordered 07/07/18 Ordered By: Shena Cummins Admission Data Admit Date/Time: 07/06/18 16:28 Attending Provider: Jordan An Admit Provider: Oliverio De La Rosa Primary Care Provider: Vince Wyatt Other Providers: Oliverio De La Rosa ; Elio Powers Service: Telemetry
== END 2018-07-07 15:15 | disposition home or self-care (01) | DRG 309 ==
LOC: 2S 10:33 → ED 10:33 → SUATTDRO 15:01 → 2S 15:21

== ENCOUNTER 2019-08-22 14:53 | Inpatient (IN) ==
[2019-08-22] MEDS ORDERED: SODIUM CHLORIDE 0.9% 1000ML 500 ML IV ONE (15:13)
[2019-08-22] MEDS ORDERED: MAGNESIUM SULFATE / D5W 1 GM/100 ML BAG IV STA (15:13)
--- NOTE | 2019-08-22 15:19 | Emergency Department Note ---
Impression & Plan Atrial fibrillation with rapid ventricular response, Palpitation ED Provider Note NAME: MARIA ESTHER STEVENSON AGE: 69 SEX: F : 1950 ARRIVES VIA: Walk-In INFORMANT: Patient, ED PROVIDER(S): Saúl Huynh DO CHIEF COMPLAINT: Palpitations HPI: The patient is a 69-year-old female who presented to the emergency department for an evaluation of palpitations. The patient has a history of atrial fibrillation. She has had ablation procedure in May 2018. She also had required cardioversion in June 2018 but she is had no problems with atrial fibrillation ever since this time. The patient presented to the emergency department today because of acute onset of palpitations which began at 8 PM last evening while she was at rest. She denies having any nausea or vomiting. She does complain of generalized weakness especially with any exertion. She denies having a cough or fever. She has had no recent travels or exposure to COVID-19 as far she knows. The patient called her nursing assistants teacher today and received a phone call back from the on-call nursing assistants teacher. He recommended that she take 200 mg of her amiodarone in the morning and 200 mg in the afternoon. She still has ongoing palpitations and symptoms so she presented to the emergency department for an evaluation. The patient states that she has been compliant with her medi cation regimen otherwise. She does take Eliquis 5 mg twice daily and took her last dose this morning. She is not due for another dose until 8 PM. ROS: See above HPI for pertinent positives & negatives. A total of 10 systems reviewed and were otherwise negative. PAST MEDICAL HISTORY: See Below PAST SURGICAL HISTORY: See Below FAMILY HISTORY: See Below SOCIAL HISTORY: See Below HOME MEDICATIONS: See Below ALLERGIES: See Below VITALS: See Below PHYSICAL EXAMINATION: GENERAL: Patient is awake alert in no acute distress patient is resting comfortably and showing no signs of anxiety EYES: The conjunctivae are clear. The pupils are round and reactive. EARS, NOSE, MOUTH AND THROAT: The nose is without any evidence of any deformity. Mucous membranes are moist. NECK: The neck is nontender and supple. RESPIRATORY: Normal respiratory effort is noted there is no evidence of wheezing rhonchi or rales CARDIOVASCULAR: Tachycardic and irregular rhythm was noted to auscultation. No definite murmur was noted. GASTROINTESTINAL: The abdomen is soft. Abdomen is nontender. MUSCULOSKELETAL/EXTREMITIES: There is no evidence of gross deformity full range of motion is noted in the hips and shoulders. SKIN: There is no obvious evidence of any rash. There are no petechiae, pallor or cyanosis noted. NEUROLOGIC: Patient is awake alert and oriented x3. MEDICAL DECISION MAKING: The patient is a 69-year-old female who presented to the emergency department for an evaluation of palpitations. The patient has a history of paroxysmal atrial fibrillation. The patient does take oral anticoagulation although she had stopped it recently for a procedure. She restarted her anticoagulation 4 days ago. The patient was found to be in atrial fibrillation with rapid ventricular response. She was treated with IV fluids and IV magnesium. She also received IV potassium replacement and IV beta-blockers. She was reevaluated multiple times. She was feeling much better on subsequent reevaluation but continues to be in atrial fibrillation. I discussed her case with the on-call nursing assistants teacher for the patient's primary group. I also discussed her case with the on-call [facility]. They have agreed to evaluate the patient for further management disposition. It is possible the patient may require another cardioversion to return to sinus rhythm. I discussed this possibility with the patient and she was agreeable to this plan. Triage Nursing notes reviewed. Prior medical records reviewed Vital Signs: reviewed and remarkable for tachycardia and elevated blood pressure. Differential diagnosis: Premature contractions, electrolyte abnormality, cardiac dysrhythmia, thyroid dysfunction, pulmonary embolism, infection, gastrointestinal, as well as other pathologies. ER treatment provided: See below Diagnostics interpreted by me: ECG: EKG was obtained in the emergency department. My interpretation is atrial fibrillation with rapid ventricular response at 106 bpm. A right bundle branch block pattern was noted. There were no PVCs. This was compared to a tracing from July 07, 2018. No significant changes were noted. Cardiac Monitoring: An order was placed for continuous cardiac monitoring. The monitor shows a rate of 110 with atrial fibrillation rhythm. Laboratory studies: As stated above and show below. Imaging studies: See below Consultation(s): 1800: I discussed this case with Dr. Powers who was on-call for the cardiology group. 1830: I discussed this case with Dr. Dwyer. She was on-call for the [facility] group. She is agreed to evaluate the patient in the emergency department for further management and disposition. 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 Required: No Beliefs That Will Affect Care: None marital status: Current Living Situation: Spouse current occupational status: retired Feels Safe at Home: Yes Safety Concerns: Feels Safe At This Time Smoking Status: Never smoker Second Hand Exposure: No ; Hx Alcohol Use: No Hx Substance Use: No Allergies Allergies Allergy/AdvReac Type Severity Reaction Status Date / Time amlodipine AdvReac Severe headach/vom Verified 08/22/19 15:34 itting Penicillins AdvReac Unknown Unknown Verified 08/22/19 15:34 ChloraPrep AdvReac Intermediate red, itchy Uncoded 08/22/19 15:34 Home Meds Home Medications Medication Instructions Recorded Confirmed Eliquis 5 mg PO BID 06/20/18 08/22/19 [facility] Rx 1 tab PO QDL 06/20/18 08/22/19 acetaminophen [Tylenol Extra 1,000 mg PO Q6H PRN 06/20/18 08/22/19 Strength] coenzyme Q10 [CoQ-10] 100 mg PO QDL 06/20/18 08/22/19 vitamin E 400 unit PO QDL 06/20/18 08/22/19 amiodarone 100 mg PO QAM 08/22/19 08/22/19 chlorthalidone 25 mg PO QAM 08/22/19 08/22/19 cholecalciferol (vitamin D3) 25 mcg PO DAILY 08/22/19 08/22/19 [Vitamin D3] famotidine [Pepcid] 20 mg PO DAILY PRN 08/22/19 08/22/19 hydralazine 30 mg PO TID 08/22/19 08/22/19 isosorbide dinitrate 10 mg PO BID 08/22/19 08/22/19 krill oil 500 mg PO DAILY 08/22/19 08/22/19 potassium chloride 10 meq PO BID 08/22/19 08/22/19 ropinirole 2 mg PO HS 08/22/19 08/22/19 rosuvastatin 5 mg PO QAM 08/22/19 08/22/19 spironolactone 25 mg PO QAM 08/22/19 08/22/19 Results & Data (ED) Vital Signs Vital Signs - 24 hr 08/22/19 15:00 08/22/19 15:29 08/22/19 16:12 Temperature 36.5 C Temperature Source Oral Pulse Rate 117 H Pulse Rate [Apical] 108 H Respiratory Rate 25 H 18 Respiratory Effort / Characteristics Non-Labored Respiratory Depth Normal Blood Pressure 154/92 H Blood Pressure [Left Arm] 148/97 H Blood Pressure Mean 112 Blood Pressure Mean [Left Arm] 114 Pulse Oximetry 96 99 95 Oxygen Delivery Method Room Air Room Air Room Air Sepsis Recent Fever Within 48 Hours No Sepsis New/Unexplained Change in Mental Status No Sepsis Action Taken by Nursing No Action Required 08/22/19 17:30 Temperature Temperature Source Pulse Rate Pulse Rate [Apical] 78 Respiratory Rate 18 Respiratory Effort / Characteristics Respiratory Depth Blood Pressure Blood Pressure [Left Arm] 158/95 H Blood Pressure Mean Blood Pressure Mean [Left Arm] 116 Pulse Oximetry 95 Oxygen Delivery Method Room Air Sepsis Recent Fever Within 48 Hours Sepsis New/Unexplained Change in Mental Status Sepsis Action Taken by Custodial Medications Current Medication List: was personally reviewed by me Laboratory Data Attestation: I reviewed the patient's lab results. Result diagrams: 08/22/19 16:05 08/22/19 16:05 Lab Results 08/22/19 08/22/19 08/22/19 Range/Units 16:05 16:05 16:05 WBC 11.38 H (4.8-10.8) K/uL RBC 4.62 (4.2-5.4) M/uL Hgb 14.5 (12.0-16.0) g/dL Hct 42.8 (37-47) % MCV 92.6 (80-100) fL MCH 31.4 (25-34) pg MCHC 33.9 (32-36) g/dL RDW Std Deviation 51.7 H (36.4-46.3) fL RDW Coeff of Cornell 15.3 H (11.5-14.5) % Plt Count 344 (130-400) K/uL MPV 11.6 H (7.4-10.4) fL Immature Gran % (Auto) 0.4 % Neut % (Auto) 66.5 % Lymph % (Auto) 24.4 % Gila % (Auto) 7.2 % Eos % (Auto) 1.2 % Baso % (Auto) 0.3 % Neut # (Auto) 7.56 H (1.4-6.5) K/uL Lymph # (Auto) 2.78 (1.2-3.4) K/uL Gila # (Auto) 0.82 H (0.11-0.59) K/uL Eos # (Auto) 0.14 (0-0.5) K/uL Baso # (Auto) 0.03 (0-0.2) K/uL Immature Gran # (Auto) 0.05 H (0.00-0.02) K/uL PT 10.9 (9.0-12.0) Seconds INR 1.0 (0.9-1.1) APTT 29.6 (21.0-31.0) Seconds PTT Ratio 1.1 Sodium 140 (136-145) mmol/L Potassium 3.1 L (3.5-5.1) mmol/L Chloride 105 (98-107) mmol/L Carbon Dioxide 25 (21-32) mmol/L Anion Gap 10.0 (3-11) BUN 33 H (7-18) mg/dl Creatinine 1.49 H (0.6-1.2) mg/dl Est Cr Clr Drug Dosing 45.0 ml/min Est GFR ( Amer) 41.4 Est GFR (Non-Af Amer) 35.7 BUN/Creatinine Ratio 22.0 H (10-20) Glucose 116 H (70-99) mg/dl Calcium 9.4 (8.5-10.1) mg/dl Magnesium 2.4 (1.8-2.4) mg/dl Total Bilirubin 0.7 (0.2-1) mg/dl AST 35 (15-37) U/L ALT 63 (12-78) U/L Alkaline Phosphatase 86 (45-117) U/L Troponin I 0.040 (0-0.045) ng/ml Total Protein 7.4 (6.4-8.2) gm/dl Albumin 3.7 (3.4-5.0) gm/dl Globulin 3.7 (2.5-4.0) gm/dl Albumin/Globulin Ratio 1.0 (0.9-2) Lipase 177 (73-393) U/L Administered Medications Apixaban (Eliquis) 5 mg PO BID AYAH Stop: 09/21/19 20:59 Last Admin: 08/22/19 21:03 Dose: 5 mg Documented by: [id number] Hydralazine HCl (Apresoline) 30 mg PO TID AYAH Stop: 09/21/19 20:59 Last Admin: 08/22/19 21:03 Dose: 30 mg Documented by: [id number] Potassium Chloride (Klor-Con M10) 10 meq PO BID AYAH Stop: 09/21/19 20:59 Last Admin: 08/22/19 21:03 Dose: 10 meq Documented by: [id number] Ropinirole HCl (Requip) 2 mg PO HS AYAH Stop: 09/21/19 20:59 Last Admin: 08/22/19 21:03 Dose: 2 mg Documented by: [id number] Discontinued Medications Magnesium Sulfate/Dextrose (Magnesium Sulfate / D5w) 1 gm in 100 mls @ 100 mls/hr IV NOW STA Stop: 08/22/19 16:12 Last Infusion: 08/22/19 17:22 Dose: 0 mls/hr Documented by: [id number] Admin: 08/22/19 16:13 Dose: 100 mls/hr Documented by: [id number] Sodium Chloride (Nss 1000ml) 500 mls @ 999 mls/hr IV .Q31M ONE Stop: 08/22/19 15:43 Last Infusion: 08/22/19 17:22 Dose: 0 mls/hr Documented by: [id number] Admin: 08/22/19 16:13 Dose: 999 mls/hr Documented by: [id number] Potassium Chloride (K John / Wtr) 10 meq in 100 mls @ 100 mls/hr IV ONE ONE Stop: 08/22/19 18:08 Last Infusion: 08/22/19 20:16 Dose: 0 mls/hr Documented by: [id number] Admin: 08/22/19 17:39 Dose: 100 mls/hr Documented by: [id number] Metoprolol Tartrate (Lopressor) 5 mg IV NOW STA Stop: 08/22/19 18:21 Last Admin: 08/22/19 18:33 Dose: 5 mg Documented by: [id number] Potassium Chloride (Luzmaria Ciel Elix) 40 meq PO NOW ONE Stop: 08/22/19 21:01 Last Admin: 08/22/19 21:15 Dose: 40 meq Documented by: [id number] Imaging Data Radiologist's Impression: XR chest 1V portable HISTORY: Atypical Chest Pain COMPARISON: Chest 07/05/2018. FINDINGS: The lungs are clear. Cardiac silhouette is normal in size. No pleural effusions. No pneumothorax. IMPRESSION: No acute process. ACT 112: Negative or not required by law. Electronically signed by: Artemio Sneed M.D. 08/22/2019 5:23 PM Dictated: 08/22/19 1722 Transcribed: 08/22/19 1722 Blood Pressure Blood Pressure Findings: Elevated blood pressure Blood Pressure Disposition: further management by hospitalist Discharge Plan Visit Data *Final* Discharge Date/Time: 08/22/19 18:58 Chief Complaint: Shortness of Breath/Dyspnea Stated Complaint: A FIB ED Provider: Saúl Huynh Discharge Problem: Atrial fibrillation with rapid ventricular response, Palpitation Patient Disposition: Admitted As Inpatient Condition: Good Discharge Instructions Interventions: ED Discharge Assessment Last Done: 08/22/19 18:58
[2019-08-22 16:20] LABS: Basophils # (auto) 0.03 K/uL (0-0.2); Basophils % (auto) 0.3 %; Eosinophils # (auto) 0.14 K/uL (0-0.5); Eosinophils % (auto) 1.2 %; Hematocrit (blood only) 42.8 % (37-47); Hemoglobin 14.5 g/dL (12.0-16.0); Immature Granulocytes # (auto) 0.05 K/uL (0.00-0.02); Immature Granulocytes % (auto) 0.4 %; Lymphocytes # (auto) 2.78 K/uL (1.2-3.4); Lymphocytes % (auto) 24.4 %; Mean Corpuscular Hemoglobin 31.4 pg (25-34); Mean Corpuscular Hgb Conc 33.9 g/dL (32-36); Mean Corpuscular Volume 92.6 fL (80-100); Mean Platelet Volume 11.6 fL (7.4-10.4); Monocytes # (auto) 0.82 K/uL (0.11-0.59); Monocytes % (auto) 7.2 %; Neutrophils # (auto) 7.56 K/uL (1.4-6.5); Neutrophils % (auto) 66.5 %; Platelet Count 344 K/uL (130-400); RDW Coefficient of Variation 15.3 % (11.5-14.5); RDW Standard Deviation 51.7 fL (36.4-46.3); Red Blood Count 4.62 M/uL (4.2-5.4); White Blood Count 11.38 K/uL (4.8-10.8)
[2019-08-22 16:31] LABS: Partial Thromboplastin Ratio 1.1; Partial Thromboplastin Time 29.6 Seconds (21.0-31.0); Prothrombin Time 10.9 Seconds (9.0-12.0)
[2019-08-22 16:42] LABS: Albumin Level 3.7 gm/dl (3.4-5.0); Calcium 9.4 mg/dl (8.5-10.1); Est GFR (African American) 41.4; Est GFR (Non-African American) 35.7; Magnesium 2.4 mg/dl (1.8-2.4); Potassium 3.1 mmol/L (3.5-5.1)
[2019-08-22 16:47] LABS: Bilirubin,Total 0.7 mg/dl (0.2-1); Globulin 3.7 gm/dl (2.5-4.0); Total Protein 7.4 gm/dl (6.4-8.2); Troponin I 0.04 ng/ml (0-0.045)
[2019-08-22] MEDS ORDERED: POTASSIUM CHLORIDE / WTR 10 MEQ/100 ML PLCT IV ONE (17:09)
--- NOTE | 2019-08-22 17:25 | XRay Report ---
XR chest 1V portable HISTORY: Atypical Chest Pain COMPARISON: Chest 07/05/2018. FINDINGS: The lungs are clear. Cardiac silhouette is normal in size. No pleural effusions. No pneumot horax. IMPRESSION: No acute process. ACT 112: Negative or not required by law. Electronically signed by: Artemio Sneed M.D. 08/22/2019 5:23 PM
[2019-08-22] MEDS ORDERED: METOPROLOL TARTRATE 1 MG/ML VIAL IV STA (18:20)
[2019-08-22] MEDS ORDERED: ONDANSETRON INJ 2 MG/ML 2 ML VIAL IV PRN (18:29)
[2019-08-22] MEDS ORDERED: NITROGLYCERIN SL 0.4 MG/TAB TAB SL PRN (18:29)
[2019-08-22] MEDS ORDERED: ACETAMINOPHEN 325 MG TAB PO PRN (18:29)
[2019-08-22] MEDS ORDERED: MAGNESIUM HYDROXIDE SUSP 30 ML UDC PO PRN (18:29)
[2019-08-22] MEDS ORDERED: ALUMINUM/MAGNESIUM SUSP 30 ML UDC PO PRN (18:29)
[2019-08-22] MEDS ORDERED: POLYETHYLENE (MIRALAX) 17 GM PACK PO PRN (18:29)
[2019-08-22] MEDS ORDERED: FAMOTIDINE 20 MG TAB PO PRN (19:42)
[2019-08-22] MEDS ORDERED: ACETAMINOPHEN 500 MG TAB PO PRN (19:42)
[2019-08-22] MEDS ORDERED: METOPROLOL TARTRATE 1 MG/ML VIAL IV PRN (20:25)
--- NOTE | 2019-08-22 20:40 | Electrocardiogram Report ---
Test Reason : Blood Pressure : / mmHG Vent. Rate : 106 BPM Atrial Rate : 088 BPM P-R Int : 000 ms QRS Dur : 148 ms QT Int : 408 ms P-R-T Axes : 000 246 015 degrees QTc Int : 541 ms Atrial fibrillation with rapid ventricular response with premature ventricular or aberrantly conducte d complexes Right bundle branch block Abnormal ECG When compared with ECG of 07-JUL-2018 07:47, Atrial fibrillation has replaced Sinus rhythm Vent. rate has increased BY 41 BPM Confirmed by Rigoberto Powers ([id number]) on 08/22/2019 8:40:09 PM Referred By: REFERRED SELF Confirmed By:Ayden Powers
[2019-08-22] MEDS ORDERED: ROPINIROLE HCL 1 MG TABLET PO SCH (21:00)
[2019-08-22] MEDS ORDERED: POTASSIUM CHLORIDE 20 MEQ/15 ML UDC PO ONE (21:00)
[2019-08-22] MEDS: APIXABAN 5 MG TABLET PO SCH (21:03)
[2019-08-22] MEDS: HydrALAZINE 10 MG TAB PO SCH (21:03)
[2019-08-22] MEDS: POTASSIUM CHLORIDE 10 MEQ TABCR PO SCH (21:03)
--- NOTE | 2019-08-22 23:56 | History and Physical Report ---
DATE OF ADMISSION: 08/22/2019 CHIEF COMPLAINT: Palpitations. HISTORY OF PRESENT ILLNESS: This is a 69-year-old female with past medical history significant for heart failure with preserved ejection fraction, paroxysmal supraventricular tachycardia, hypertension, benign hypertensive heart disease and chronic kidney disease stage III, esophagitis, morbid obesity, restless leg syndrome, Factor V Leiden, elevated liver enzymes, generalized anxiety disorder presents with rapid a fib.. The patient has history of atrial fibrillation status post ablation in May 2018 and also cardioversion in June 2018. Since then, she says she is doing fine until last night when she noticed again palpitations and some lightheaded and shortness of breath and she called her psychology associate in the morning and was advised to take amiodarone 2 tablets in the morning and afternoon which she took but she was still getting palpitations, so she came to the ER. In the ER, she received a dose of IV Lopressor. Currently, heart rate seems to be rate controlled. Apparently denies any chest pain or shortness of breath. No cough, no fever, no chills, no headache, no blurred vision, no earache, no runny nose, no sore throat, no difficulty swallowing. Appetite is okay. No nausea, no abdominal pain. Normal bowel and bladder movements. No rash. Ambulates okay. Says she recently had steroid shot to the back for back pain. ALLERGIES: AMLODIPINE, PENICILLIN, CHLORAPREP. PAST MEDICAL HISTORY: As mentioned above. PAST SURGICAL HISTORY: Cardiac cath, colonoscopy, electrocardioversion, tonsillectomy, cholecystectomy, total abdominal hysterectomy with removal of tubes. MEDICATIONS: The patient is on Crestor 5 mg p.o. daily, hydralazine 30 mg p.o. t.i.d., chlorthalidone 25 mg p.o. daily, potassium chloride 20 mEq p.o. daily, Requip 2 mg p.o. daily in the night, B complex 1 tablet daily, Eliquis 5 mg p.o. b.i.d., amiodarone 100 mg p.o. daily, isosorbide dinitrate 10 mg p.o. b.i.d., famotidine 20 mg p.o. daily, Aldactone 25 mg p.o. daily. FAMILY HISTORY: Significant for mother had lymphoma. Father had heart disorder. SOCIAL HISTORY: . No smoking, no alcohol, no drug use. REVIEW OF SYMPTOMS: As per HPI. Rest of review of systems negative. PHYSICAL EXAMINATION: GENERAL: The patient is obese, not in acute distress currently. VITAL SIGNS: Temperature 36.8, pulse 78, respiratory rate 18, blood pressure 147/100, oxygen 100% on room air. HEENT: No pallor, no icterus. Extraocular muscles intact. NECK: No JVD, no neck masses. CARDIOVASCULAR: S1, S2 heard, regular rate and rhythm, no murmur, no gallop. RESPIRATORY SYSTEM: Normal AP diameter. No accessory muscle use. No wheezing, no crackles. ABDOMEN: Soft, bowel sounds present, nontender. No distention. CENTRAL NERVOUS SYSTEM: Cranial nerves II-XII grossly intact, nonfocal. EXTREMITIES: No edema, no erythema. LABORATORY DATA: WBC 11.8, hemoglobin 14.5, hematocrit 42.8, platelets 344. PT 10.9, INR 1, APTT 29.6. Sodium 140, potassium 3.1, chloride 105, bicarbonate 25, BUN 33, creatinine 1.49, serum glucose 116, calcium 9.4, magnesium 2.4, total bilirubin 0.7, AST 35, ALT 63, alkaline phosphatase 86, troponin I 0.04, lipase 177. IMAGING: Chest x-ray, no acute process. EKG: Atrial fibrillation with RVR at a rate of 106, right bundle branch block. ASSESSMENT AND PLAN: This is a 69-year-old female with history of atrial fibrillation status post ablation in May 2018 and cardioversion in June 2018, on amiodarone and Eliquis, presents with palpitation in spite of taking extra dose of amiodarone. 1. Atrial fibrillation with RVR: The patient received IV Lopressor in ER and currently rate is under control, status post ablation in May 2018 and history of cardioversion in June 2018. Continue home amiodarone 100 mg p.o. daily currently and also Eliquis. We placed on IV Lopressor p.r.n. Consult cardiology. Follow serial enzymes, echocardiogram, n.p.o. after midnight and monitor in tele floor. 2. Hypokalemia: Replace. 3. The patient had heart failure with preserved ejection fraction, holding the chlorthalidone and Aldactone . We will monitor for any volume overload. Follow echocardiogram. 4. History of hypertension, on hydralazine, Isordil, holding Aldactone and chlorthalidone. We will monitor the blood pressure. 5. Restless leg syndrome: Continue ReQuip. 6. Hyperlipidemia: On statin. 7. Chronic kidney disease stage III, baseline creatinine 1.4-1.5. We will follow the labs. 8. Obesity: Needs counseling. 9. Deep venous thrombosis prophylaxis: On Eliquis. DISPOSITION: Closely monitor in tele floor. Level 1 full code. MTDD
[2019-08-23 06:08] LABS: BUN Creatinine Ratio 22.1 (10-20); Calcium 8.8 mg/dl (8.5-10.1); Creatinine Clr Calc Pharmacy 57.2 ml/min; Est GFR (African American) 54.9; Est GFR (Non-African American) 47.4; Magnesium 2.3 mg/dl (1.8-2.4); Potassium 3.6 mmol/L (3.5-5.1)
[2019-08-23] MEDS ORDERED: ISOSORBIDE DINITRATE 10 MG TAB PO SCH (07:00)
[2019-08-23] MEDS: POTASSIUM CHLORIDE 10 MEQ TABCR PO SCH (08:33)
[2019-08-23] MEDS: HydrALAZINE 10 MG TAB PO SCH (08:33)
[2019-08-23] MEDS: APIXABAN 5 MG TABLET PO SCH (08:34)
[2019-08-23] MEDS ORDERED: AMIODARONE 200 MG TAB PO SCH ×2 (09:00→17:00)
[2019-08-23] MEDS ORDERED: CHOLECALCIFEROL 1,000 UNITS 25 MCG TAB PO SCH (09:00)
[2019-08-23] MEDS ORDERED: NON-FORMULARY MEDICATION (Krill Oil 500 MG) PO SCH (09:00)
[2019-08-23] MEDS ORDERED: ROSUVASTATIN CALCIUM 5 MG TAB PO SCH (09:00)
[2019-08-23] MEDS ORDERED: ASPIRIN 81 MG ECTAB PO SCH (09:00)
--- NOTE | 2019-08-23 09:43 | Electrocardiogram Report ---
Test Reason : Blood Pressure : / mmHG Vent. Rate : 088 BPM Atrial Rate : 000 BPM P-R Int : 000 ms QRS Dur : 150 ms QT Int : 444 ms P-R-T Axes : 000 -60 016 degrees QTc Int : 537 ms Atrial flutter with variable A-V block Left axis deviation Right bundle branch block Abnormal ECG When compared with ECG of 22-AUG-2019 15:05, HR has decreased by 18 bpm Otherwise no significant change Confirmed by David Lopez ([id number]) on 08/23/2019 9:43:11 AM Referred By: REFERRED SELF Confirmed By:David Lopez
[2019-08-23] MEDS ORDERED: SPIRONOLACTONE 25 MG TAB PO SCH (10:15)
[2019-08-23] MEDS ORDERED: CHLORTHALIDONE 25 MG TAB PO SCH (10:15)
--- NOTE | 2019-08-23 10:21 | XCELERA ---
[id number]
--- NOTE | 2019-08-23 10:36 | Hospitalist Progress Note ---
Date of Service August 23, 2019 Assessment & Plan (1) Atrial fibrillation with rapid ventricular response: History of PAF status post ablation and also cardioversion in June 2018 Admitted with palpitation and feels better this morning though still has the palpitation Heart rate is controlled Echo of the heart did show EF of 35 to 60%, LV systolic function normal, wall motion is normal, mild MR, left atrium is moderately dilated and mild TR with RV systolic function is normal The case was discussed by the polytechnic teacher and advised that amiodarone should be increased to 200 twice daily and will have a follow-up for cardioversion in about 2 to 3 weeks She will be discharged this afternoon (2) Palpitation: Secondary to atrial fibrillation (3) Elevated LFTs: Has been normalized Other medical conditions like chronic kidney disease Sleep apnea Admission and Anticipated Discharge Date Admission Date: August 22, 2019 Subjective The patient was seen and examined in telemetry unit She was admitted with palpitation with a history of PAF status post ablation and cardioversion in June 2018 Still complains of occasional palpitation Denies any chest pain and no shortness of breath Review of Systems Review of Systems: All systems reviewed and are unremarkable except as noted below Cardiovascular: + palpitations; no chest pain and no dyspnea Physical Exam Physical Exam: Lying in bed comfortably Constitutional: well developed, well nourished, + ill appearing and + obese; no acute distress Eyes: PERRL, conjunctivae normal, anicteric sclerae ENMT: external ear and nose normal, oropharynx normal Neck: trachea midline, no thyromegaly Respiratory: normal respiratory effort; no respiratory distress Auscultation: lungs clear to auscultation bilaterally Cardiovascular: Rate/Rhythm: + irregularly irregular Gastrointestinal (Abdomen): Inspection/Auscultation: abdomen normal to inspection and normal bowel sounds; abdomen not distended Percussion/Palpation: abdomen soft; abdomen nontender Musculoskeletal: No acute arthritis involving any joints Neurologic: moves all extremities; no focal motor deficits Alert, awake and oriented x3 Results & Data Results & Data ([facility]) Vital Signs (Past 12 Hours) Vital Signs Temp Pulse Pulse Resp BP Pulse Ox 08/23/19 07:42 36.8 C 84 20 121/69 96 08/23/19 04:20 36.5 C 76 16 127/65 97 08/23/19 00:00 68 08/22/19 23:52 36.5 C 86 16 130/61 96 Laboratory Results Short CBC 08/22/19 Range/Units 16:05 WBC 11.38 H (4.8-10.8) K/uL Hgb 14.5 (12.0-16.0) g/dL Hct 42.8 (37-47) % Plt Count 344 (130-400) K/uL BMP 08/22/19 08/23/19 16:05 04:48 Sodium 140 142 Potassium 3.1 L 3.6 D Chloride 105 111 H Carbon Dioxide 25 24 BUN 33 H 26 H Creatinine 1.49 H 1.18 D Glucose 116 H 99 Calcium 9.4 8.8 Cardiac Enzymes 08/22/19 08/23/19 Range/Units 16:05 04:48 Troponin I 0.040 0.033 (0-0.045) ng/ml Liver Function 08/22/19 Range/Units 16:05 Total Bilirubin 0.7 (0.2-1) mg/dl AST 35 (15-37) U/L ALT 63 (12-78) U/L Alkaline Phosphatase 86 (45-117) U/L Albumin 3.7 (3.4-5.0) gm/dl Medications Administered Current Inpatient Medications Acetaminophen (Tylenol) 1,000 mg PO Q6H PRN PRN Reason: Pain Stop: 09/21/19 19:41 Last Admin: 08/23/19 01:36 Dose: 1,000 mg Documented by: Al Hydrox/Mg Hydrox/Simethicone (Maalox) 15 ml PO Q4H PRN PRN Reason: Dyspepsia Stop: 09/21/19 18:28 Amiodarone HCl (Cordarone) 200 mg PO BIDM [facility] Stop: 09/22/19 16:59 Apixaban (Eliquis) 5 mg PO BID [facility] Stop: 09/21/19 20:59 Last Admin: 08/23/19 08:34 Dose: 5 mg Documented by: Aspirin (Ecotrin Ectab) [facility] Stop: 09/22/19 08:59 Last Admin: 08/23/19 08:33 Dose: 81 mg Documented by: Chlorthalidone (Hygroton) [facility] [place] Stop: 09/22/19 10:14 Famotidine (Pepcid) 20 mg PO DAILY PRN PRN Reason: Heartburn Stop: 09/21/19 19:41 Hydralazine HCl (Apresoline) 30 mg PO TID [facility] Stop: 09/21/19 20:59 Last Admin: 08/23/19 08:33 Dose: 30 mg Documented by: Isosorbide Dinitrate (Isordil) 10 mg PO BID@0700,1200 [facility] Stop: 09/22/19 06:59 Last Admin: 08/23/19 07:10 Dose: 10 mg Documented by: Magnesium Hydroxide (Milk Of Magnesia) 30 ml PO Q12H PRN PRN Reason: Constipation Stop: 09/21/19 18:28 Metoprolol Tartrate (Lopressor) 2.5 mg IV Q4 PRN PRN Reason: Tachycardia Stop: 09/22/19 00:00 Nitroglycerin (Nitrostat) 0.4 mg SL UD PRN PRN Reason: Chest Pain Stop: 09/21/19 18:28 Ondansetron HCl (Zofran) 4 mg IV Q6H PRN PRN Reason: Nausea Stop: 09/21/19 18:28 Polyethylene Glycol (Miralax Powder Packet) 17 gm PO DAILY PRN PRN Reason: Constipation Stop: 09/21/19 18:28 Potassium Chloride (Klor-Con M10) 10 meq PO BID [facility] Stop: 09/21/19 20:59 Last Admin: 08/23/19 08:33 Dose: 10 meq Documented by: Ropinirole HCl (Requip) 2 mg PO HS [facility] Stop: 09/21/19 20:59 Last Admin: 08/22/19 21:03 Dose: 2 mg Documented by: Rosuvastatin Calcium (Crestor) 5 mg PO QAM [facility] Stop: 09/22/19 08:59 Last Admin: 08/23/19 08:33 Dose: 5 mg Documented by: Spironolactone (Aldactone) 25 mg PO QAM [facility] Stop: 09/22/19 10:14 Vitamin B Complex/Folic Acid (Nephrocaps) 1 cap PO QDL [facility] Stop: 09/22/19 11:29 Vitamin D (Vitamin D3) 1,000 units PO DAILY [facility] Stop: 09/22/19 08:59 Last Admin: 08/23/19 08:34 Dose: 1,000 units Documented by: Vitamin E (Vitamin E) 400 units PO QDL [facility] Stop: 09/22/19 11:29
[2019-08-23] MEDS ORDERED: AMIODARONE 200 MG TAB PO STA (10:53)
[2019-08-23] MEDS ORDERED: NON-FORMULARY MEDICATION (Coenzyme Q10 [Coq-10] 100 MG) PO SCH (11:30)
[2019-08-23] MEDS ORDERED: NEPHROCAPS PO SCH (11:30)
[2019-08-23] MEDS ORDERED: TOCOPHERYL, DL-ALPHA 400 UNITS CAP PO SCH (11:30)
--- NOTE | 2019-08-24 07:51 | Discharge Summary ---
Date of Service August 24, 2019 Admission HPI Per Admitting Provider DICTATED BY: Colby Shahid MD DATE OF ADMISSION: 08/22/2019 CHIEF COMPLAINT: Palpitations. HISTORY OF PRESENT ILLNESS: This is a 69-year-old female with past medical history significant for heart failure with preserved ejection fraction, paroxysmal supraventricular tachycardia, hypertension, benign hypertensive heart disease and chronic kidney disease stage III, esophagitis, morbid obesity, restless leg syndrome, Factor V Leiden, elevated liver enzymes, generalized anxiety disorder presents with rapid a fib.. The patient has history of atrial fibrillation status post ablation in May 2018 and also cardioversion in June 2018. Since then, she says she is doing fine until last night when she noticed again palpitations and some lightheaded and shortness of breath and she called her recreation technician in the morning and was advised to take amiodarone 2 tablets in the morning and afternoon which she took but she was still getting palpitations, so she came to the ER. In the ER, she received a dose of IV Lopressor. Currently, heart rate seems to be rate controlled. Apparently denies any chest pain or shortness of breath. No cough, no fever, no chills, no headache, no blurred vision, no earache, no runny nose, no sore throat, no difficulty swallowing. Appetite is okay. No nausea, no abdominal pain. Normal bowel and bladder movements. No rash. Ambulates okay. Says she recently had steroid shot to the back for back pain. Admission Exam Per Admitting Provider GENERAL: The patient is obese, not in acute distress currently. VITAL SIGNS: Temperature 36.8, pulse 78, respiratory rate 18, blood pressure 147/100, oxygen 100% on room air. HEENT: No pallor, no icterus. Extraocular muscles intact. NECK: No JVD, no neck masses. CARDIOVASCULAR: S1, S2 heard, regular rate and rhythm, no murmur, no gallop. RESPIRATORY SYSTEM: Normal AP diameter. No accessory muscle use. No wheezing, no crackles. ABDOMEN: Soft, bowel sounds present, nontender. No distention. CENTRAL NERVOUS SYSTEM: Cranial nerves II-XII grossly intact, nonfocal. EXTREMITIES: No edema, no erythema. Principal Diagnosis AF with RVR Discharge Exam Constitutional well developed, well nourished, + ill appearing and + obese; no acute distress Eyes PERRL, conjunctivae normal, anicteric sclerae ENMT external ear and nose normal, oropharynx normal Neck trachea midline, no thyromegaly Respiratory normal respiratory effort; no respiratory distress Auscultation: lungs clear to auscultation bilaterally Cardiovascular Rate/Rhythm: + irregularly irregular Gastrointestinal (Abdomen) Inspection/Auscultation: abdomen normal to inspection and normal bowel sounds; abdomen not distended Percussion/Palpation: abdomen soft; abdomen nontender Neurologic moves all extremities; no focal motor deficits Discharge Data Allergies Allergy/AdvReac Type Severity Reaction Status Date / Time amlodipine AdvReac Severe headach/vom Verified 08/22/19 15:34 itting Penicillins AdvReac Unknown Unknown Verified 08/22/19 15:34 ChloraPrep AdvReac Intermediate red, itchy Uncoded 08/22/19 15:34 Consultations 08/22/19 18:21 ED Decision to Admit Stat 08/22/19 18:29 Consult Cardiology Routine Hospital Course (1) Atrial fibrillation with rapid ventricular response: History of PAF status post ablation and also cardioversion in June 2018 Admitted with palpitation and feels better this morning though still has the palpitation Heart rate is controlled Echo of the heart did show EF of 35 to 60%, LV systolic function normal, wall motion is normal, mild MR, left atrium is moderately dilated and mild TR with RV systolic function is normal The case was discussed by the recreation technician and advised that amiodarone should be increased to 200 twice daily and will have a follow-up for cardioversion in about 2 to 3 weeks She will be discharged this afternoon (2) Palpitation: Secondary to atrial fibrillation (3) Elevated LFTs: Has been normalized Other medical conditions like chronic kidney disease Sleep apnea Total Time Total Time Spent Total Time Spent (In Minutes): 35 minutes Total Time Includes: Examination of the Patient, Discharge Planning, Medication Reconciliation and Communication With Other Providers Discharge Plan Discharge Items Patient Disposition: Home - Self-Care Reason For Visit: PALPITATION/ AFIB Discharge Diagnosis: AF with RVR Condition on Discharge: Good Activity: Resume your previous activity Non-emergency contact: Primary Care Provider Call non-emergency contact if: you have any medication questions and your sympt oms worsen Follow-up/Referrals: Vince Wyatt MD [Primary Care Provider] - 08/26/19 9:20 am (Your Appointment is with Sarika Polk.) Diet: Heart Healthy Addtl Attending Provider Instructions: Please take Amiodarone as prescribed Pending Studies at Discharge: No Stand-Alone Forms: My [facility], Smoking Cessation Medications and DC Order Prescriptions: New amiodarone 200 mg Tablet 200 mg PO BIDM 30 Days Qty: 60 RF: 0 Continued isosorbide dinitrate 10 mg tablet 10 mg PO BID RF: 0 hydralazine 10 mg tablet 30 mg PO TID RF: 0 potassium chloride 10 mEq tablet extended release 10 meq PO BID RF: 0 chlorthalidone 25 mg tablet 25 mg PO QAM RF: 0 spironolactone 25 mg tablet 25 mg PO QAM RF: 0 ropinirole 2 mg tablet 2 mg PO HS RF: 0 rosuvastatin 5 mg tablet 5 mg PO QAM RF: 0 famotidine [Pepcid] 20 mg Tablet 20 mg PO DAILY PRN (Reason: Heartburn) RF: 0 cholecalciferol (vitamin D3) [Vitamin D3] 25 mcg (1,000 unit) Capsule 25 mcg PO DAILY RF: 0 krill oil 500 mg Capsule 500 mg PO DAILY RF: 0 acetaminophen [Tylenol Extra Strength] 500 mg Tablet 1,000 mg PO Q6H PRN (Reason: Pain) RF: 0 vitamin E 400 unit Capsule 400 unit PO QDL RF: 0 coenzyme Q10 [CoQ-10] 100 mg Capsule 100 mg PO QDL RF: 0 Merced-Matteo Rx 1-60-300 mg-mg-mcg tablet 1 tab PO QDL RF: 0 Eliquis 5 mg tablet 5 mg PO BID RF: 0 Discontinued amiodarone 100 mg tablet 100 mg PO QAM RF: 0 Discharge Orders: Discharge Order (Routine); Ordered 08/23/19 Ordered By: Alexandre Hutson Admission Data Admit Date/Time: 08/22/19 18:29 Attending Provider: Alexandre Hutson Admit Provider: Bria Dwyer Primary Care Provider: Vince Wyatt Other Providers: Bria Dwyer ; Sinan Larkin Other Interventions: Discharge Summary Assessment (RN) Last Done: 08/23/19 11:44 DC Date/Time DO NOT enter until pt leaves facility: 08/23/19 12:13
== END 2019-08-23 12:13 | disposition home or self-care (01) | DRG 309 ==
LOC: ED 14:53 → OBSVTOIN 18:29 → 2S 18:29 → SUATTDRO 18:29 → INTOOBSV 18:29 → 2S 18:58

== ENCOUNTER 2020-09-12 00:48 | Observation (INO) ==
--- NOTE | 2020-09-12 01:14 | Emergency Department Note ---
Impression & Plan Digoxin toxicity ED Provider Note Name: MARIA ESTHER STEVENSON Age: 70 Sex: F Arrives Via: Walk-In Informant: Patient, , Epic Record ED Provider: Adan Hoyt MD Chief Complaint: DIgoxin overdose Impression: See Above Medical Decision Makin yr old female with pacemaker and underlying afib who recently was switched from amiodarone to digoxin. Worseing dizziness over the last week with increasing nausea/vomiting. Outpatient labs with elevated Dig level and send to ED for evaluation of accidental digoxin overdose. On eval patient appears well but uncomfortable/nauseous with stable vitals and EKG with paced rhythm. Labs with elevated digoxin level. K is normal and Cr is at baseline. Given gentle hydration. Reviewed with poison control who agree with no Digibind at this time. She will need to be monitored for K and dig levels and thus hospitalist consulted. I did note to patient that CT head should be done given dizziness, being on blood thinner but she declines understanding missing intracranial pathology risks. We discussed mildly elevated lipase, and possibly doing CT a/p but she also declines, noting minimal abdominal pain. She will be hospitalized for close monitoring. Prior Medical Record and Triage/Nursing Notes reviewed by Me Additional history obtained from chart and epic record Differentials:Overdose, toxicologic, infection, hypoglycemia, electrolyte abnormalities, cardiac sources, intracerebral event, neurologic, trauma, as well as other pathologies. Vital Signs: reviewed and remarkable for no significant abnormalities Interventions: saline lock, nss infusion, zofran iv Labs:Reviewed and remarkable for elevated digoxin level and mild lipase elevation EKG:Per My Interpretation: Indication overdose: V-Paced 63 bpm, qtc 415 with underlying atrial flutter. No Ectopy. No Ischemia. Compared to EKG 7am on 09/12/20 she is now vpaced having been sinus earlier Cardiac/Tele Monitoring: Cardiac Monitoring: An Order was placed for continuous cardiac monitoring. The monitor shows a rate of 60 with a vpaced rhythm. Consults:Dr Zehra Delgado Hospitalist Plan: Disposition:Hospitalization. Condition: Good History of Present Illness:70 yr old female arrives for evaluation of dizziness. Patient with several weeks of dizziness. She notes she was seen by cadiologist who switched her to Digoxin from Amiodarone last week. She has been on Amio/dig for treatment of afib post Pacemaker placement last month. She notes the last few days increasing dizziness, nausea, and weakness. Mild associated abdominal discomfort. No fevers, chills, chest pain, sob, syncope, back pain, leg swleling, neuro deficits nor other symptoms ROS: See above HPI for pertinent positives & negatives. A total of 10 systems reviewed and were otherwise negative. Past Medical History:See Below Past Surgical History:See Below Family History:See Below Social History:See Below Home Medications:See Below Allergies:amlodipine, penicillin Vitals:Blood Pressure: 172/86 Pulse 69, RR 18, T 36.7C, O2 97% on RA Physical Exam: GENERAL: Patient is anxious appearing and in minimal distress. EYES: No scleral icterus, unremarkable pupils. ENT: Mucous membranes moist, no nasal congestion. NECK: No masses appreciated, nomeningismus, trachea is midline. RESPIRATORY: No dyspnea. Clear to auscultation and equal bilaterally. No wheeze, no rhonchi. CARDIOVASCULAR: Regular rate and rhythm.No murmurs, rubs, gallops appreciated. GASTROINTESTINAL: Abdomen soft, non-tender, no peritonitis.Bowel sounds positive.No masses appreciated. BACK: No midline tenderness, no CVA tenderness EXTREMITIES: Normal motion all extremities, no cyanosis, no edema. NEUROLOGIC: Alert and oriented, no acute motor or sensory deficits, no focal weakness, cranial nerves grossly intact. SKIN: No rash, no jaundice, no diaphoresis. PSYCH: Appropriate GCS: 15 ED Course: Times/Reassessments: nausea improved, disappointed in need for hospitalization but agreeable Adan Hoyt MD Past Med/Surg History Medical History Anxiety Atrial fibrillation S/p ablation 05/2018 and s/p cardioversion 06/2018 CKD (chronic kidney disease) Stage III Esophageal reflux Factor V Leiden History of heart failure Hypertension JIM on CPAP Restless leg syndrome Scoliosis Surgical History H/O: hysterectomy 1998 History of cardiac cath right and left 2015, biopsy as well History of cholecystectomy History of tonsillectomy Status post creation of pericardial window 2017 Social History Smoking Status: Never smoker Second Hand Exposure: No; Hx Alcohol Use: No Hx Substance Use: No Preferred Language: Syriac Communication Ability: Effective Vice President Financial Required: No Beliefs That Will Affect Care: None marital status: Current Living Situation: Spouse Current Living Situation Comment: lives with current occupational status: retired How many Children do You have: 3 Other Information That Helps Us Care for You: No Feels Safe at Home: Yes Safety Concerns: Feels Safe At This Time Assistive Devices: CPAP Allergies Allergies Allergy/AdvReac Type Severity Reaction Status Date / Time amlodipine AdvReac Severe headach/vom Verified 09/12/20 01:37 itting Penicillins AdvReac Unknown Unknown Verified 09/12/20 01:37 ChloraPrep AdvReac Intermediate red, itchy Uncoded 09/12/20 01:37 Home Meds Home Medications Medication Instructions Recorded Confirmed acetaminophen 500 mg tablet 1,000 mg PO Q6H PRN 06/20/18 09/12/20 (Tylenol Extra Strength) apixaban 5 mg tablet (Eliquis) 5 mg PO BID 06/20/18 09/12/20 coenzyme Q10 100 mg capsule 100 mg PO QDL 06/20/18 09/12/20 (CoQ-10) vitamin B comp no.3-folic acid 1 1 tab PO QDL 06/20/18 09/12/20 mg-vit C 60 mg-biotin 300 mcg tablet (Merced-Matteo Rx) vitamin E 400 unit capsule 400 unit PO QDL 06/20/18 09/12/20 cholecalciferol (vitamin D3) 25 25 mcg PO QDL 08/22/19 09/12/20 mcg (1,000 unit) capsule (Vitamin D3) famotidine 20 mg tablet (Pepcid) 20 mg PO DAILY PRN 08/22/19 09/12/20 isosorbide dinitrate 10 mg tablet 10 mg PO BID 08/22/19 09/12/20 krill oil 500 mg capsule 500 mg PO QDL 08/22/19 09/12/20 potassium chloride 10 mEq 10 meq PO TID 08/22/19 09/12/20 tablet,extended release rosuvastatin 5 mg tablet 5 mg PO QAM 08/22/19 09/12/20 spironolactone 25 mg tablet 25 mg PO QAM 08/22/19 09/12/20 Cline Tart 1,200 mg PO QDL 09/08/19 09/12/20 lorazepam 0.5 mg tablet (Ativan) 0.5 mg PO DAILY PRN 09/08/19 09/12/20 furosemide 40 mg tablet (Lasix) 40 mg PO QAM 09/12/20 09/12/20 hydralazine 50 mg tablet 50 mg PO TID 09/12/20 09/12/20 metoprolol tartrate 50 mg tablet 50 mg PO BID 09/12/20 09/12/20 ropinirole 4 mg tablet 4 mg PO HS 09/12/20 09/12/20 Results & Data (ED) Vital Signs Vital Signs - 24 hr 09/12/20 00:52 09/12/20 01:18 09/12/20 02:00 Temperature 36.7 C Temperature Source Temporal Artery Scan Pulse Rate 69 63 62 Pulse Rate from SpO2 Sensor 63 62 Respiratory Rate 18 16 20 Respiratory Effort / Characteristics Non-Labored Spontaneous Respiratory Depth Normal Respiratory Pattern Regular Blood Pressure 172/86 H 164/74 H 173/76 H Blood Pressure Mean 114 104 108 Blood Pressure Position Sitting Pulse Oximetry 97 99 96 Oxygen Delivery Method Room Air Room Air Room Air Sepsis Recent Fever Within 48 Hours No Sepsis New/Unexplained Change in Mental Status No Sepsis Action Taken by Nursing No Action Required 09/12/20 03:00 Temperature Temperature Source Pulse Rate 60 Pulse Rate from SpO2 Sensor 60 Respiratory Rate 18 Respiratory Effort / Characteristics Respiratory Depth Respiratory Pattern Blood Pressure 166/76 H Blood Pressure Mean 106 Blood Pressure Position Pulse Oximetry 100 Oxygen Delivery Method Room Air Sepsis Recent Fever Within 48 Hours Sepsis New/Unexplained Change in Mental Status Sepsis Action Taken by Nursing Laboratory Data Result diagrams: 09/12/20 05:46 09/12/20 23:18 Lab Results 09/12/20 09/12/20 09/12/20 Range/Units 01:49 01:49 01:49 WBC 10.18 (4.8-10.8) K/uL RBC 3.99 L (4.2-5.4) M/uL Hgb 12.3 (12.0-16.0) g/dL Hct 37.2 (37-47) % MCV 93.2 (80-100) fL MCH 30.8 (25-34) pg MCHC 33.1 (32-36) g/dL RDW Std Deviation 52.9 H (36.4-46.3) fL RDW Coeff of [place] 15.5 H (11.5-14.5) % Plt Count 349 (130-400) K/uL MPV 10.1 (7.4-10.4) fL Immature Gran % (Auto) 0.4 % Neut % (Auto) 76.7 % Lymph % (Auto) 14.3 % [place] % (Auto) 6.7 % Eos % (Auto) 1.7 % Baso % (Auto) 0.2 % Neut # (Auto) 7.81 H (1.4-6.5) K/uL Lymph # (Auto) 1.46 (1.2-3.4) K/uL [place] # (Auto) 0.68 H (0.11-0.59) K/uL Eos # (Auto) 0.17 (0-0.5) K/uL Baso # (Auto) 0.02 (0-0.2) K/uL Immature Gran # (Auto) 0.04 H (0.00-0.02) K/uL Sodium 138 (136-145) mmol/L Potassium 3.7 (3.5-5.1) mmol/L Chloride 105 (98-107) mmol/L Carbon Dioxide 30 (21-32) mmol/L Anion Gap 3.0 (3-11) BUN 26 H (7-18) mg/dl Creatinine 1.25 H (0.6-1.2) mg/dl Est Cr Clr Drug Dosing 52.0 ml/min Est GFR ( Amer) 50.8 ml/min Est GFR (Non-Af Amer) 43.9 ml/min BUN/Creatinine Ratio 20.9 H (10-20) Glucose 117 H (70-99) mg/dl Calcium 9.0 (8.5-10.1) mg/dl Magnesium 2.4 (1.8-2.4) mg/dl Total Bilirubin 1.0 (0.2-1) mg/dl Direct Bilirubin 0.3 H (0-0.2) mg/dl AST 37 (15-37) U/L ALT 54 (12-78) U/L Alkaline Phosphatase 69 (45-117) U/L Troponin I 0.082 H* (0-0.045) ng/ml Total Protein 7.0 (6.4-8.2) gm/dl Albumin 3.4 (3.4-5.0) gm/dl Lipase 412 H (73-393) U/L TSH 4.150 (0.300-4.500) uIu/ml Digoxin 4.7 H* (0.8-2.0) ng/ml COVID-19 Eval Order SARS-CoV-2 (PCR) (Negative) 09/12/20 09/12/20 Range/Units 02:58 02:58 WBC (4.8-10.8) K/uL RBC (4.2-5.4) M/uL Hgb (12.0-16.0) g/dL Hct (37-47) % MCV (80-100) fL MCH (25-34) pg MCHC (32-36) g/dL RDW Std Deviation (36.4-46.3) fL RDW Coeff of Cornell (11.5-14.5) % Plt Count (130-400) K/uL MPV (7.4-10.4) fL Immature Gran % (Auto) % Neut % (Auto) % Lymph % (Auto) % [place] % (Auto) % Eos % (Auto) % Baso % (Auto) % Neut # (Auto) (1.4-6.5) K/uL Lymph # (Auto) (1.2-3.4) K/uL [place] # (Auto) (0.11-0.59) K/uL Eos # (Auto) (0-0.5) K/uL Baso # (Auto) (0-0.2) K/uL Immature Gran # (Auto) (0.00-0.02) K/uL Sodium (136-145) mmol/L Potassium (3.5-5.1) mmol/L Chloride (98-107) mmol/L Carbon Dioxide (21-32) mmol/L Anion Gap (3-11) BUN (7-18) mg/dl Creatinine (0.6-1.2) mg/dl Est Cr Clr Drug Dosing ml/min Est GFR ( Amer) ml/min Est GFR (Non-Af Amer) ml/min BUN/Creatinine Ratio (10-20) Glucose (70-99) mg/dl Calcium (8.5-10.1) mg/dl Magnesium (1.8-2.4) mg/dl Total Bilirubin (0.2-1) mg/dl Direct Bilirubin (0-0.2) mg/dl AST (15-37) U/L ALT (12-78) U/L Alkaline Phosphatase (45-117) U/L Troponin I (0-0.045) ng/ml Total Protein (6.4-8.2) gm/dl Albumin (3.4-5.0) gm/dl Lipase (73-393) U/L TSH (0.300-4.500) uIu/ml Digoxin (0.8-2.0) ng/ml COVID-19 Eval Order Covid19 at [facility] SARS-CoV-2 (PCR) NEGATIVE (Negative) Administered Medications Acetaminophen (Acetaminophen 325 Mg Tab) 650 mg PO Q4H PRN PRN Reason: Pain or Fever Stop: 10/12/20 05:22 Last Admin: 09/12/20 05:36 Dose: 650 mg Documented by: [id number] Apixaban (Apixaban 5 Mg Tablet) 5 mg PO BID [facility] Stop: 10/12/20 08:59 Last Admin: 09/12/20 20:44 Dose: 5 mg Documented by: [id number] Admin: 09/12/20 08:17 Dose: 5 mg Documented by: [id number] Famotidine (Famotidine 20 Mg Tab) 20 mg PO DAILY PRN PRN Reason: Heartburn Stop: 10/12/20 05:22 Last Admin: 09/12/20 08:18 Dose: 20 mg Documented by: [id number] Furosemide (Furosemide 40 Mg Tab) 40 mg PO QAM [facility] Stop: 10/12/20 08:59 Last Admin: 09/12/20 08:18 Dose: 40 mg Documented by: [id number] Hydralazine HCl (Hydralazine Tab 50 Mg Tab) 50 mg PO TID [facility] Stop: 10/12/20 08:59 Last Admin: 09/12/20 20:45 Dose: 50 mg Documented by: [id number] Admin: 09/12/20 13:54 Dose: 50 mg Documented by: [id number] Admin: 09/12/20 08:17 Dose: 50 mg Documented by: [id number] Promethazine HCl 12.5 mg/ (Sodium Chloride) 50.5 mls @ 202 mls/hr IV Q6H PRN PRN Reason: Nausea And Vomiting Stop: 10/12/20 06:18 Last Infusion: 09/12/20 06:51 Dose: 0 mls/hr Documented by: [id number] Admin: 09/12/20 06:35 Dose: 202 mls/hr Documented by: [id number] Isosorbide Dinitrate (Isosorbide Dinitrate 10 Mg Tab) 10 mg PO BID@0700,1200 [facility] Stop: 10/12/20 06:59 Last Admin: 09/12/20 11:50 Dose: 10 mg Documented by: [id number] Admin: 09/12/20 06:11 Dose: 10 mg Documented by: [id number] Metoprolol Tartrate (Metoprolol Tartrate 50 Mg Tab) 50 mg PO BID [facility] Stop: 10/12/20 20:59 Last Admin: 09/12/20 20:44 Dose: Not Given Documented by: [id number] Ondansetron HCl (Ondansetron Inj 2 Mg/Ml 2 Ml Vial) 4 mg IV Q4H PRN PRN Reason: Nausea Stop: 10/12/20 14:42 Last Admin: 09/12/20 19:40 Dose: 4 mg Documented by: [id number] Admin: 09/12/20 15:32 Dose: 4 mg Documented by: [id number] Polyethylene Glycol (Polyethylene (Miralax) 17 Gm Pack) 17 gm PO BID PRN PRN Reason: Constipation Stop: 10/12/20 21:35 Last Admin: 09/12/20 21:43 Dose: 17 gm Documented by: [id number] Ropinirole HCl (Ropinirole Hcl 1 Mg Tablet) 4 mg PO HS [facility] Stop: 10/12/20 20:59 Last Admin: 09/12/20 20:45 Dose: 4 mg Documented by: [id number] Rosuvastatin Calcium (Rosuvastatin Calcium 5 Mg Tab) 5 mg PO QAM [facility] Stop: 10/12/20 08:59 Last Admin: 09/12/20 08:18 Dose: 5 mg Documented by: [id number] Spironolactone (Spironolactone 25 Mg Tab) 25 mg PO QAM [facility] Stop: 10/12/20 08:59 Last Admin: 09/12/20 08:18 Dose: 25 mg Documented by: [id number] Vitamin B Complex/Folic Acid (Nephrocaps) 1 cap PO QDL [facility] Stop: 10/12/20 11:29 Last Admin: 09/12/20 11:50 Dose: 1 cap Documented by: [id number] Vitamin D (Cholecalciferol 1,000 Units 25 Mcg Tab) 1,000 units PO QDL [facility] Stop: 10/12/20 11:29 Last Admin: 09/12/20 11:51 Dose: 1,000 units Documented by: [id number] Vitamin E (Tocopheryl, Dl-Alpha 400 Units 180 Mg Cap) 400 units PO QDL [facility] Stop: 10/12/20 11:29 Last Admin: 09/12/20 11:50 Dose: 400 units Documented by: [id number] Discontinued Medications Sodium Chloride (Nss 1000ml) 1,000 mls @ 125 mls/hr IV .Q8H [facility] Stop: 10/12/20 02:29 Last Infusion: 09/12/20 05:28 Dose: 0 mls/hr Documented by: [id number] Admin: 09/12/20 02:41 Dose: 125 mls/hr Documented by: [id number] Sodium Chloride (Nss 1000ml) 1,000 mls @ 75 mls/hr IV .[id number] AYAH Stop: 09/12/20 18:49 Last Infusion: 09/12/20 19:04 Dose: 0 mls/hr Documented by: [id number] Admin: 09/12/20 05:36 Dose: 75 mls/hr Documented by: [id number] Ondansetron HCl (Ondansetron Inj 2 Mg/Ml 2 Ml Vial) 4 mg IV NOW STA Stop: 09/12/20 01:48 Last Admin: 09/12/20 01:51 Dose: 4 mg Documented by: [id number] Ropinirole HCl (Ropinirole Hcl 1 Mg Tablet) 4 mg PO NOW STA Stop: 09/12/20 09:50 Last Admin: 09/12/20 10:35 Dose: 4 mg Documented by: [id number] Discharge Plan Visit Data Chief Complaint: Referred by Doctor Stated Complaint: HIGH LEVEL OF MEDICATION-TOLD TO COME BY ED Provider: Adan Hoyt Discharge Problem: Digoxin toxicity Patient Disposition: Home - Self-Care Condition: Good Discharge Instructions Interventions: ED Discharge Assessment Last Done: 09/12/20 04:43 Discharge Problem: Digoxin toxicity Qualifiers: Encounter type: initial encounter Injury intent: accidental or unintentional Qualified Code(s): T46.0X1A - Poisoning by cardiac-stimulant glycosides and drugs of similar action, accidental (unintentional), initial encounter
[2020-09-12] MEDS ORDERED: ONDANSETRON INJ 2 MG/ML 2 ML VIAL IV STA (01:47)
[2020-09-12 01:58] LABS: Basophils # (auto) 0.02 K/uL (0-0.2); Basophils % (auto) 0.2 %; Eosinophils # (auto) 0.17 K/uL (0-0.5); Eosinophils % (auto) 1.7 %; Hematocrit (blood only) 37.2 % (37-47); Hemoglobin 12.3 g/dL (12.0-16.0); Immature Granulocytes # (auto) 0.04 K/uL (0.00-0.02); Immature Granulocytes % (auto) 0.4 %; Lymphocytes # (auto) 1.46 K/uL (1.2-3.4); Lymphocytes % (auto) 14.3 %; Mean Corpuscular Hemoglobin 30.8 pg (25-34); Mean Corpuscular Hgb Conc 33.1 g/dL (32-36); Mean Corpuscular Volume 93.2 fL (80-100); Mean Platelet Volume 10.1 fL (7.4-10.4); Monocytes # (auto) 0.68 K/uL (0.11-0.59); Monocytes % (auto) 6.7 %; Neutrophils # (auto) 7.81 K/uL (1.4-6.5); Neutrophils % (auto) 76.7 %; Platelet Count 349 K/uL (130-400); RDW Coefficient of Variation 15.5 % (11.5-14.5); RDW Standard Deviation 52.9 fL (36.4-46.3); Red Blood Count 3.99 M/uL (4.2-5.4); White Blood Count 10.18 K/uL (4.8-10.8)
[2020-09-12 02:19] LABS: Albumin Level 3.4 gm/dl (3.4-5.0); BUN Creatinine Ratio 20.9 (10-20); Bilirubin Direct 0.3 mg/dl (0-0.2); Est GFR (African American) 50.8 ml/min; Est GFR (Non-African American) 43.9 ml/min; Magnesium 2.4 mg/dl (1.8-2.4); Potassium 3.7 mmol/L (3.5-5.1)
[2020-09-12] MEDS ORDERED: SODIUM CHLORIDE 0.9% 1000ML 1,000 ML IV SCH ×2 (02:30→05:30)
[2020-09-12 02:38] LABS: Thyroid Stimulating Hormone 4.15 uIu/ml (0.300-4.500); Troponin I 0.082 ng/ml (0-0.045)
[2020-09-12] MEDS ORDERED: LORazepam 0.5 MG TAB PO PRN (05:23)
[2020-09-12] MEDS ORDERED: FAMOTIDINE 20 MG TAB PO PRN (05:23)
[2020-09-12] MEDS ORDERED: ACETAMINOPHEN 325 MG TAB PO PRN (05:23)
[2020-09-12] MEDS ORDERED: NITROGLYCERIN SL 0.4 MG/TAB TAB SL PRN (05:23)
--- NOTE | 2020-09-12 05:42 | History and Physical Report ---
DATE OF ADMISSION: 09/12/2020. CHIEF COMPLAINT: Dizziness and digitalis toxicity. HISTORY OF PRESENT ILLNESS: This is a 70-year-old female with past medical history significant for hyperinsulinemia, heart failure with preserved ejection fraction, hypertension, paroxysmal supraventricular tachycardia, history of persistent atrial fibrillation, chronic kidney disease stage III, esophagitis, history of tubular adenoma of colon, restless legs syndrome, factor V Leiden deficiency, elevated liver enzymes, generalized anxiety disorder, who presents with dizziness and elevated digoxin level. The patient says about a week ago, cardiology had put her on digoxin because she was complaining of dizziness and amiodarone can cause sometimes dizziness and amiodarone was stopped. Yesterday, after going to spiritism, she ate outside food and came home. She had nausea and vomiting few times, but it got resolved and today when she went to family doctor for same complaints of dizziness, nausea, and had upset stomach, labs were done, which showed elevated digoxin level and she was advised to come here. She also was treated with meclizine for dizziness from her cardiology. There is a plan to go to physical therapy for ongoing dizziness. Her digoxin level here in the ER was 4.7 and troponin 0.08. Currently, resting comfortably and hemodynamically stable. She says sometimes she gets vertigo kind of feeling when she lays on the bed. Currently, no headache, no blurred visions, no earache, no runny nose, no sore throat, no cough, no dysphagia, no nausea, no abdominal pain, no chest pain or shortness of breath. No rash. She has mild chronic swelling in the legs. Denies imbalance. ALLERGIES: AMLODIPINE, PENICILLINS, CHLORAPREP. PAST MEDICAL HISTORY: As mentioned above. PAST SURGICAL HISTORY: Cardiac catheterization, colonoscopy, electroconversion, tonsillectomy, cholecystectomy, total abdominal hysterectomy with removal of tubes. MEDICATIONS: The patient is on Tylenol 1000 mg p.o. q. 6 hours p.r.n., vitamin D 25 mcg p.o. daily p.r.n., Coenzyme Q10 100 mg p.o. daily, Eliquis 5 mg p.o. b.i.d., Pepcid 20 mg p.o. daily p.r.n., Lasix 40 mg p.o. a.m., hydralazine 50 mg p.o. t.i.d., isosorbide dinitrate 10 mg p.o. t.i.d., Ativan 0.5 mg p.o. daily p.r.n., potassium chloride 20 mEq p.o. t.i.d., Merced Matteo one tablet p.o. every day, ropinirole 4 mg p.o. at bedtime, rosuvastatin 5 mg q.a.m., spironolactone 25 mg p.o. a.m., vitamin E 400 units p.o. daily. FAMILY HISTORY: Significant for mother had lymphoma, father had heart disorder. SOCIAL HISTORY: , no smoking, no alcohol, no drug use. REVIEW OF SYSTEMS: As per HPI. Rest of the review of systems negative. PHYSICAL EXAMINATION: GENERAL: The patient is obese, not in acute distress. VITAL SIGNS: Temperature 36.7, pulse 68, respiratory rate 18, blood pressure 166/76, oxygen 100% on room air. HEENT: Pupils equal, round and reactive to light. Oral mucosa moist. NECK: No JVD, no neck masses. HEART: S1 and S2 heard. Regular rate and rhythm. No murmur, no gallop. RESPIRATORY SYSTEM: Normal AP diameter. No accessory muscle use. No wheezing, no crackles. ABDOMEN: Soft, bowel sounds present, nontender, no distention. CENTRAL NERVOUS SYSTEM: Cranial nerves II-XII grossly intact, nonfocal. EXTREMITIES: No edema, no erythema. LABORATORY DATA: WBC 10.1, hemoglobin 12.3, hematocrit 37.2, platelets 349. Sodium 138, potassium 3.7, chloride 105, bicarbonate 30, BUN 26, creatinine 1.25, serum glucose 117, calcium 9, magnesium 2.4, total bilirubin 1, direct bilirubin 0.3, AST 37, ALT 54, alkaline phosphatase 69. Troponin 1 of 0.08. TSH is 4.15. Digoxin level 4.7. SARS-CoV-2 PCR negative. EKG: Ventricular paced rhythm at a rate of 63, no acute ST changes seen. ASSESSMENT AND PLAN: This is a 70-year-old female who presents with dizziness and was found to have elevated digoxin level. 1. Elevated digoxin level of 4.7. EKG shows paced rhythm. The patient is not having bradycardia. The patient's digoxin was recently started about a week ago by cardiology after stopping the amiodarone. ER physician contacted poison control. No Digibind recommended. Just monitor and repeat labs unless the patient is symptomatic or digoxin level goes to very high levels. We will monitor in the tele floor. We will follow the repeat digoxin levels, stop digoxin, and consult cardiology in the a.m. 2. Mild elevation in troponin, mostly likely demand ischemia, currently asymptomatic: We will follow serial enzymes, echo as per Cardiology. 3. Chronic kidney disease stage III: Creatinine 1.25. We will follow the labs. 4. Mild elevation of lipase mostly non specific. The patient is asymptomatic.. We will follow the repeat lipase levels. 5. H xof PAF, History of paroxysmal supraventricular tachycardia, status post pacemaker, on Eliquis and Lopressor.. Following digoxin levels. 6. Heart failure with preserved ejection fraction. Continue her home diuretics. Monitor for any volume overload as patinet gentle fluids. 8. Hypertension: Continue her hydralazine, isosorbide dinitrate, diuretics, and Lopressor. Monitor blood pressure. 9. History of hyperlipidemia: Continue statins. 10. Restless legs syndrome: Continue her ropinirole. 11. Deep venous thrombosis prophylaxis: On Eliquis. DISPOSITION: Closely monitor in tele floor. Level 1 full code. Expect to discharge home and follow with family doctor. Job ID: [id number] [facility]
[2020-09-12] MEDS: ISOSORBIDE DINITRATE 10 MG TAB PO SCH ×2 (06:11→11:50)
[2020-09-12 06:15] LABS: Basophils # (auto) 0.01 K/uL (0-0.2); Basophils % (auto) 0.1 %; Eosinophils # (auto) 0.09 K/uL (0-0.5); Hematocrit (blood only) 36.7 % (37-47); Hemoglobin 11.9 g/dL (12.0-16.0); Immature Granulocytes # (auto) 0.03 K/uL (0.00-0.02); Immature Granulocytes % (auto) 0.3 %; Lymphocytes % (auto) 15.5 %; Mean Corpuscular Hemoglobin 29.8 pg (25-34); Mean Corpuscular Hgb Conc 32.4 g/dL (32-36); Mean Corpuscular Volume 91.8 fL (80-100); Mean Platelet Volume 10.3 fL (7.4-10.4); Monocytes # (auto) 0.58 K/uL (0.11-0.59); Monocytes % (auto) 6.4 %; Neutrophils # (auto) 6.95 K/uL (1.4-6.5); Neutrophils % (auto) 76.7 %; Platelet Count 346 K/uL (130-400); RDW Coefficient of Variation 15.3 % (11.5-14.5); White Blood Count 9.06 K/uL (4.8-10.8)
[2020-09-12] MEDS ORDERED: PROMETHAZINE HCL 12.5 MG in SODIUM CHLORIDE 0.9% 50 ML IV PRN (06:19)
[2020-09-12 06:44] LABS: BUN Creatinine Ratio 21.3 (10-20); Creatinine Clr Calc Pharmacy 60.5 ml/min; Est GFR (Non-African American) 50.1 ml/min; Magnesium 2.3 mg/dl (1.8-2.4); Potassium 3.4 mmol/L (3.5-5.1)
[2020-09-12] MEDS: APIXABAN 5 MG TABLET PO SCH ×2 (08:17→20:44)
[2020-09-12] MEDS: hydrALAZINE TAB 50 MG TAB PO SCH ×3 (08:17→20:45)
[2020-09-12] MEDS: SPIRONOLACTONE 25 MG TAB PO SCH (08:18)
[2020-09-12] MEDS: FUROSEMIDE 40 MG TAB PO SCH (08:18)
[2020-09-12] MEDS: ROSUVASTATIN CALCIUM 5 MG TAB PO SCH (08:18)
[2020-09-12 09:24] LABS: Appearance Urine Clear (Clear); Bacteria Urine Automated Negative (Negative); Bilirubin Urine Negative (Negative); Blood Urine Negative (Negative); Color Urine Yellow; Epithelial Cell Urine Auto >30 /lpf (0-5); Glucose Urine UA Negative (Negative); Ketones Urine Negative (Negative); Leukocyte Esterase Urine Negative (Negative); Nitrite Urine Negative (Negative); Protein Urine Trace (Negative); RBC Urine Automated 0-4 /hpf (0-4); Specific Gravity Urine 1.022 (1.000-1.030); Urobilinogen Urine Negative (Negative)
[2020-09-12] MEDS ORDERED: rOPINIRole HCL 1 MG TABLET PO STA (09:49)
[2020-09-12] MEDS: TOCOPHERYL, DL-ALPHA 400 UNITS 180 MG CAP PO SCH (11:50)
[2020-09-12] MEDS: NEPHROCAPS PO SCH (11:50)
[2020-09-12] MEDS: CHOLECALCIFEROL 1,000 UNITS 25 MCG TAB PO SCH (11:51)
[2020-09-12 11:52] LABS: BUN Creatinine Ratio 22.7 (10-20); Creatinine Clr Calc Pharmacy 61.6 ml/min; Est GFR (African American) 59.3 ml/min; Est GFR (Non-African American) 51.2 ml/min; Potassium 3.6 mmol/L (3.5-5.1)
--- NOTE | 2020-09-12 12:13 | Cardiology Consultation ---
Date of Consultation September 12, 2020 Assessment & Plan (1) Digoxin toxicity: IMPRESSION: 1. a. Recurrent symptomatic paroxysmal atrial fibrillation status post a-fib ablation 05/2018. b. Post-procedure pericarditis. c. Post ablation cardioversion 06/2018 on amiodarone. d. Cardioversion 08/2019 and again 04/2020, and again 06/2020. 2. Chronic anticoagulation. 3. Normal LV size and function with normal RV size, but RV dysfunction 05/2018. 4. Recent initiation of amiodarone. 5. Chronic diastolic heart failure grade 2. 6. Longstanding hypertension secondary to -induced hypertension 7. Severe tricuspid regurgitation and moderate mitral regurgitation on MAUREEN of with preserved left ventricular systolic function. . 8. Severe pulmonary hypertension, likely multifactorial. 9. Status post dual-chamber pacemaker 08/13/2020 with a Medtronic [place] XT MRI compatible device Ms. De La Vega continues to be somewhat nauseas with vertigo but otherwise not exhibiting serious symptoms of toxicity. Her digoxin is trending down slowly. Per her report, she took the loading dose of digoxin for 4 days instead of 1. She can be re-initiated on digoxin when her dig level is at or below 1 but I would avoid any further loading doses and just start her back on maintenance dosing of 0.125 mg daily at that time. Her vertigo may possibly be secondary to amiodarone but it will take up to 6 weeks to clear the amio from her system. She can continue to take prn meclizi ne. Her metoprolol is currently on hold and can be resumed when her dig level is at or below one or if her heart rates are becoming tachycardic. Her blood pressures are slightly elevated. She can resume her metoprolol. She had a marginal increase in her troponin likely secondary to demand ischemia. Ms. De La Vega is not having any anginal symptoms. She can be discharged from cardiology's perspective. She will need a follow up dig and bmp level on Friday. History of Present Illness Reason for Consultation: Digoxin toxicity Attending Physician: Tomi Kincaid DO History of Present Illness Ms. De La Vega presented to the emergency department after feeling unwell with nausea and dizziness. Her nausea started when she was initiated on amiodarone recently but has not abated since discontinuing. After going to [place], she had nausea and vomiting and had upset stomach. She had outpatient labs drawn which showed elevated digoxin level and she was advised to come to the ED. Her digoxin level in the ED was 4.7 and troponin was 0.08. She also continues to have some vertigo with laying back or turning her head. She denies chest pain or sob or palpitations. She is not having any visual changes. She is pacing on the monitor Allergies Allergy/AdvReac Type Severity Reaction Status Date / Time amlodipine AdvReac Severe headach/vom Verified 09/12/20 01:37 itting Penicillins AdvReac Unknown Unknown Verified 09/12/20 01:37 ChloraPrep AdvReac Intermediate red, itchy Uncoded 09/12/20 01:37 Home Medications Medication Instructions Recorded Confirmed Type acetaminophen 500 mg tablet 1,000 mg PO Q6H PRN 06/20/18 09/12/20 History (Tylenol Extra Strength) apixaban 5 mg tablet (Eliquis) 5 mg PO BID 06/20/18 09/12/20 History coenzyme Q10 100 mg capsule 100 mg PO QDL 06/20/18 09/12/20 History (CoQ-10) vitamin B comp no.3-folic acid 1 1 tab PO QDL 06/20/18 09/12/20 History mg-vit C 60 mg-biotin 300 mcg tablet ([facility]) vitamin E 400 unit capsule 400 unit PO QDL 06/20/18 09/12/20 History cholecalciferol (vitamin D3) 25 25 mcg PO QDL 08/22/19 09/12/20 History mcg (1,000 unit) capsule (Vitamin D3) famotidine 20 mg tablet (Pepcid) 20 mg PO DAILY PRN 08/22/19 09/12/20 History isosorbide dinitrate 10 mg tablet 10 mg PO BID 08/22/19 09/12/20 History krill oil 500 mg capsule 500 mg PO QDL 08/22/19 09/12/20 History potassium chloride 10 mEq 10 meq PO TID 08/22/19 09/12/20 History tablet,extended release rosuvastatin 5 mg tablet 5 mg PO QAM 08/22/19 09/12/20 History spironolactone 25 mg tablet 25 mg PO QAM 08/22/19 09/12/20 History Cline Tart 1,200 mg PO QDL 09/08/19 09/12/20 History lorazepam 0.5 mg tablet (Ativan) 0.5 mg PO DAILY PRN 09/08/19 09/12/20 History furosemide 40 mg tablet (Lasix) 40 mg PO QAM 09/12/20 09/12/20 History hydralazine 50 mg tablet 50 mg PO TID 09/12/20 09/12/20 History metoprolol tartrate 50 mg tablet 50 mg PO BID 09/12/20 09/12/20 History ropinirole 4 mg tablet 4 mg PO HS 09/12/20 09/12/20 History Patient History Medical History Anxiety Atrial fibrillation S/p ablation 05/2018 and s/p cardioversion 06/2018 CKD (chronic kidney disease) Stage III Esophageal reflux Factor V Leiden History of heart failure Hypertension JIM on CPAP Restless leg syndrome Scoliosis Surgical History H/O: hysterectomy 1998 History of cardiac cath right and left 2015, biopsy as well History of cholecystectomy History of tonsillectomy Status post creation of pericardial window 2016 Social History Smoking Status: Never smoker Second Hand Exposure: No; Hx Alcohol Use: No Hx Substance Use: No Preferred Language: Turkish Communication Ability: Effective Monument Erector Required: No Beliefs That Will Affect Care: None marital status: Current Living Situation: Spouse Current Living Situation Comment: lives with current occupational status: retired How many Children do You have: 3 Other Information That Helps Us Care for You: No Feels Safe at Home: Yes Safety Concerns: Feels Safe At This Time Assistive Devices: None Review of Systems Review of Systems: All systems reviewed & are unremarkable except as noted in HPI & below Physical Exam Constitutional: WD/WN, vitals as above Respiratory: normal respiratory effort, lungs clear to auscultation Cardiovascular: RRR, no murmur, no edema Skin: no rashes, warm and dry Neurologic: CN's II-XI intact bilaterally, moves all extremities and awake Psychiatric: A+Ox3, euthymic affect Results & Data ([facility]) Vital Signs (Past 12 Hours) Vital Signs Temp Pulse Pulse Resp BP BP Pulse Ox 09/12/20 07:32 36.4 C L 62 20 149/77 H 95 09/12/20 05:58 68 09/12/20 05:10 36.8 C 62 18 182/84 H 96 09/12/20 04:43 62 16 150/78 H 98 09/12/20 04:00 64 17 164/68 H 97 09/12/20 03:00 60 18 166/76 H 100 09/12/20 02:00 62 20 173/76 H 96 09/12/20 01:18 63 16 164/74 H 99 09/12/20 00:52 36.7 C 69 18 172/86 H 97
--- NOTE | 2020-09-12 12:49 | Hospitalist Progress Note ---
Date of Service September 12, 2020 Assessment & Plan (1) Digoxin toxicity: (2) CKD (chronic kidney disease): (3) JIM on CPAP: (4) History of pericarditis: Plan: ASSESSMENT AND PLAN: This is a 70-year-old female who presents with dizziness and was found to have elevated digoxin level. 1. Elevated digoxin level of 4.7 and trending down. EKG shows paced rhythm. The patient's digoxin was recently started about a week ago by cardiology after stopping the amiodarone. ER physician contacted poison control. No Digibind recommended. Cardiology on case 2. Mild elevation in troponin, mostly likely demand ischemia, currently asymptomatic: 3. Chronic kidney disease stage III: Creatinine 1.1. 4. Mild elevation of lipase mostly non specific. The patient is asymptomatic.. We will follow the repeat lipase levels. 5. Hx of PAF, History of paroxysmal supraventricular tachycardia, status post pacemaker, on Eliquis and Lopressor.. Following digoxin levels. 6. Heart failure with preserved ejection fraction. Continue her home diuretics. Monitor for any volume overload as patient gentle fluids. 8. Hypertension: Continue her hydralazine, isosorbide dinitrate, diuretics, and Lopressor. Monitor blood pressure. 9. History of hyperlipidemia: Continue statins. 10. Restless legs syndrome: Continue her ropinirole. 11. Deep venous thrombosis prophylaxis: On Eliquis. Admission and Anticipated Discharge Date Admission Date: September 12, 2020 Review of Systems Review of Systems: ROS-No Headache, No Visual Changes, No Nausea, No Vomiting, No Fever, No Chills, No Neck Pain or Stiffness, No Chest Pain, No Palpitations, No SOB, No BERG, No Cough, No Sputum, No Wheezing, No Abdominal Pain, No Diarrhea, No Hematemesis, No Hemoptysis, No Unexpected Weight Loss, No Flank pain, No Melena, No Hematochezia, No Frequency, No Urgency, No Burning, No Hematuria, No Rashes, No Diaphoresis. Appetite is Normal, +Dizziness Physical Exam Physical Exam: Physical Exam Gen-AAO x 3, NAD, Afebrile Head-NCAT, EOMI, PERRLA, Anicteric Sclera, No Posterior Pharyngeal Erythema Neck-Supple, No JVD, No Thyromegaly, No Masses, No LAD, No Bruits Lungs-Clear to Auscultation Bilaterally, No Rales, No Rhonchi, No Wheezing, No Crepitus Chest-No S4, +S1, +S2, No S3, No Murmurs, No Rubs, No Gallops, No Ectopy Abdomen-Soft, Bowel Sounds Present, Non Tender, Non Distended, No Hepatomegaly, No Splenomegaly, No Palpable Masses, No Rebound, No Rigidity, No Guarding Musculoskeletal-Full Range of Motion Bilaterally, No CVAT Extremities-No Cyanosis, No Clubbing, No Edema Nuero-Cranial Nerves II-XII grossly intact, Motor WNL, DTRs WNL, Strength WNL, Non Focal Psych-Normal Mood Results & Data Results & Data ([facility]) Vital Signs (Past 12 Hours) Vital Signs Temp Pulse Pulse Resp BP BP Pulse Ox 09/12/20 11:44 36.4 C L 61 20 151/84 H 95 09/12/20 07:32 36.4 C L 62 20 149/77 H 95 09/12/20 05:58 68 09/12/20 05:10 36.8 C 62 18 182/84 H 96 09/12/20 04:43 62 16 150/78 H 98 09/12/20 04:00 64 17 164/68 H 97 09/12/20 03:00 60 18 166/76 H 100 09/12/20 02:00 62 20 173/76 H 96 09/12/20 01:18 63 16 164/74 H 99 09/12/20 00:52 36.7 C 69 18 172/86 H 97 Laboratory Results Allergies amlodipine Adverse Reaction (Severe, Verified 09/12/20 01:37) headach/vomitting Penicillins Adverse Reaction (Unknown, Verified 09/12/20 01:37) Unknown ChloraPrep Adverse Reaction (Intermediate, Uncoded 09/12/20 01:37) red, itchy Height/Weight/Isolation Height 5 ft 6 in Weight 113.2 kg Chemistry 09/12/20 09/12/20 09/12/20 01:49 05:46 11:17 Sodium 138 138 138 Potassium 3.7 3.4 L 3.6 Chloride 105 106 107 Carbon Dioxide 30 28 29 Anion Gap 3.0 4.0 2.0 L BUN 26 H 24 H 25 H Creatinine 1.25 H 1.12 1.10 Glucose 117 H 123 H 104 H Urinalysis 09/12/20 09:00 Urine Color Yellow Urine Appearance Clear Urine pH 6.0 Ur Specific [place] 1.022 Urine Protein Trace H Urine Glucose (UA) Negative Urine Ketones Negative Urine Blood Negative Urine Nitrite Negative Urine Bilirubin Negative
[2020-09-12] MEDS: ONDANSETRON INJ 2 MG/ML 2 ML VIAL IV PRN ×2 (15:32→19:40)
--- NOTE | 2020-09-12 15:38 | Electrocardiogram Report ---
Test Reason : Blood Pressure : / mmHG Vent. Rate : 063 BPM Atrial Rate : 326 BPM P-R Int : 000 ms QRS Dur : 158 ms QT Int : 406 ms P-R-T Axes : 000 -28 160 degrees QTc Int : 415 ms Ventricular-paced rhythm Abnormal ECG When compared with ECG of 13-SEP-2019 07:25, Electronic ventricular pacemaker has replaced Sinus rhythm Confirmed by Saúl Daniel ([id number]) on 09/12/2020 3:37:59 PM Referred By: Keith Dewitt Confirmed By:Saúl Daniel
--- NOTE | 2020-09-12 15:47 | Electrocardiogram Report ---
Test Reason : Blood Pressure : / mmHG Vent. Rate : 061 BPM Atrial Rate : 069 BPM P-R Int : 000 ms QRS Dur : 158 ms QT Int : 442 ms P-R-T Axes : 000 -28 168 degrees QTc Int : 444 ms Ventricular-paced rhythm Abnormal ECG When compared with ECG of 12-SEP-2020 01:03, (unconfirmed) Vent. rate has decreased BY 2 BPM Confirmed by Saúl Daniel ([id number]) on 09/12/2020 3:47:23 PM Referred By: Keith Dewitt Confirmed By:Saúl Daniel
[2020-09-12 17:48] LABS: BUN Creatinine Ratio 22.3 (10-20); Calcium 8.7 mg/dl (8.5-10.1); Creatinine Clr Calc Pharmacy 62.2 ml/min; Est GFR (Non-African American) 51.8 ml/min; Potassium 3.5 mmol/L (3.5-5.1)
[2020-09-12] MEDS: METOPROLOL TARTRATE 50 MG TAB PO SCH (20:44)
[2020-09-12] MEDS ORDERED: rOPINIRole HCL 1 MG TABLET PO SCH (21:00)
[2020-09-12] MEDS ORDERED: POLYETHYLENE (MIRALAX) 17 GM PACK PO PRN (21:36)
[2020-09-13 00:01] LABS: BUN Creatinine Ratio 18.4 (10-20); Calcium 8.9 mg/dl (8.5-10.1); Creatinine Clr Calc Pharmacy 57.9 ml/min; Est GFR (African American) 55.1 ml/min; Est GFR (Non-African American) 47.5 ml/min; Potassium 3.3 mmol/L (3.5-5.1)
[2020-09-13 05:55] LABS: Hemoglobin 11.8 g/dL (12.0-16.0); Mean Corpuscular Hemoglobin 29.9 pg (25-34); Mean Corpuscular Hgb Conc 32.8 g/dL (32-36); Mean Corpuscular Volume 91.1 fL (80-100); Mean Platelet Volume 10.1 fL (7.4-10.4); Platelet Count 323 K/uL (130-400); RDW Coefficient of Variation 15.4 % (11.5-14.5); RDW Standard Deviation 51.6 fL (36.4-46.3); Red Blood Count 3.95 M/uL (4.2-5.4)
[2020-09-13] MEDS: ISOSORBIDE DINITRATE 10 MG TAB PO SCH ×2 (06:22→12:01)
[2020-09-13 06:31] LABS: BUN Creatinine Ratio 19.4 (10-20); Calcium 9.2 mg/dl (8.5-10.1); Creatinine Clr Calc Pharmacy 59.5 ml/min; Est GFR (African American) 56.8 ml/min; Potassium 3.3 mmol/L (3.5-5.1)
[2020-09-13] MEDS: MECLIZINE 12.5 MG TAB PO PRN ×2 (07:26→14:06)
[2020-09-13] MEDS ORDERED: POTASSIUM CHLORIDE CRTAB 20 MEQ TABCR PO STA ×2 (08:01→09:08)
[2020-09-13] MEDS: hydrALAZINE TAB 50 MG TAB PO SCH ×2 (08:27→13:38)
[2020-09-13] MEDS: METOPROLOL TARTRATE 50 MG TAB PO SCH (08:27)
[2020-09-13] MEDS: APIXABAN 5 MG TABLET PO SCH (08:27)
[2020-09-13] MEDS: SPIRONOLACTONE 25 MG TAB PO SCH (08:28)
[2020-09-13] MEDS: ROSUVASTATIN CALCIUM 5 MG TAB PO SCH (08:28)
[2020-09-13] MEDS: FUROSEMIDE 40 MG TAB PO SCH (08:28)
--- NOTE | 2020-09-13 09:08 | Cardiology Progress Note ---
Date of Service September 13, 2020 Assessment & Plan Admission and Anticipated Discharge Date Admission Date: September 12, 2020 Cande Stephens denies any palpitations. She has no orthostatic symptoms she does continue to have vertigo. She notes just laying back she felt the room spinning.. She has any chest pain or chest pressure. She has any shortness of breath. She has no lower extremity edema. She has a cough fevers chills or sweats. She has any bleeding or bruising. Her nausea has improved. She denies seeing yellow-green in any way. Results & Data ([facility]) Vital Signs (Past 12 Hours) Vital Signs Temp Pulse Pulse Resp BP BP Pulse Ox 09/13/20 07:15 60 09/13/20 07:09 36.5 C 60 18 119/69 96 09/13/20 04:12 36.4 C L 59 L 18 135/66 97 09/12/20 23:01 36.4 C L 60 18 135/71 93 she is awake alert oriented x3 she is in no acute distress HEENT: 2+ carotid upstrokes Lungs: Clear auscultation bilaterally no rales rhonchi or wheezing Heart: Regular rate and rhythm (probably junctional) no appreciable murmurs or rubs Extremities: No clubbing cyanosis or edema (1) Digoxin toxicity: IMPRESSION: 1. a. Recurrent symptomatic paroxysmal atrial fibrillation status post a-fib ablation 05/2018. b. Post-procedure pericarditis. c. Post ablation cardioversion 06/2018 on amiodarone. d. Cardioversion 08/2019 and again 04/2020, and again 06/2020. 2. Chronic anticoagulation. 3. Normal LV size and function with normal RV size, but RV dysfunction 05/2018. 4. Recent initiation of amiodarone. 5. Chronic diastolic heart failure grade 2. 6. Longstanding hypertension secondary to -induced hypertension 7. Severe tricuspid regurgitation and moderate mitral regurgitation on MAUREEN of 05/2018 with preserved left ventricular systolic function. . 8. Severe pulmonary hypertension, likely multifactorial. 9. Status post dual-chamber pacemaker 08/13/2020 with a Medtronic [place] XT MRI compatible device And his digoxin level continues to decline. Outside of some mild nausea she really does not have any other signs of dig toxicity. in addition she has a permanent pacemaker which will not allow her to be bradycardic. If you initially look at the monitor she was V paced now she is not V paced but is still looks relatively regular suggesting she probably has an accelerated junctional rhythm with underlying atrial flutter. I would restart her digoxin next week. We will contact her on Friday to see how she is feeling and start 0.125 mg daily. Her vertigo seems to be the most debilitating issue. It may may possibly be secondary to amiodarone but it will take up to 6 weeks to clear the amio from her system. It would appear that meclizine is not helping her vertigo at all I do wonder if she would not benefit from Valium or other treatment for her vertigo before she can start vestibular therapy. She denies any weakness 1 side or the other difficulty finding words or clumsiness in her hands or gait to suggest she has had a stroke that may have led to vertigo. She should be discharged on all of her other medications that she was on other than digoxin. Her amiodarone was just stopped last . Her potassium is low and I would replete her potassium with 40 mEq here in the hospital today and she should go home on 20 mEq daily in light of the use of digoxin. We will check a BMP as an outpatient along with a dig level. From my standpoint she can be discharged home. We will arrange for her follow- up.
[2020-09-13] MEDS: NEPHROCAPS PO SCH (12:01)
[2020-09-13] MEDS: CHOLECALCIFEROL 1,000 UNITS 25 MCG TAB PO SCH (12:01)
[2020-09-13] MEDS: TOCOPHERYL, DL-ALPHA 400 UNITS 180 MG CAP PO SCH (12:01)
--- NOTE | 2020-09-13 15:33 | Discharge Summary ---
Date of Service September 13, 2020 Admission HPI Per Admitting Provider HISTORY OF PRESENT ILLNESS: This is a 70-year-old female with past medical history significant for hyperinsulinemia, heart failure with preserved ejection fraction, hypertension, paroxysmal supraventricular tachycardia, history of persistent atrial fibrillation, chronic kidney disease stage III, esophagitis, history of tubular adenoma of colon, restless legs syndrome, factor V Leiden deficiency, elevated liver enzymes, generalized anxiety disorder, who presents with dizziness and elevated digoxin level. The patient says about a week ago, cardiology had put her on digoxin because she was complaining of dizziness and amiodarone can cause sometimes dizziness and amiodarone was stopped. Yesterday, after going to judaism, she ate outside food and came home. She had nausea and vomiting few times, but it got resolved and today when she went to family doctor for same complaints of dizziness, nausea, and had upset stomach, labs were done, which showed elevated digoxin level and she was advised to come here. She also was treated with meclizine for dizziness from her cardiology. There is a plan to go to physical therapy for ongoing dizziness. Her digoxin level here in the ER was 4.7 and troponin 0.08. Currently, resting comfortably and hemodynamically stable. She says sometimes she gets vertigo kind of feeling when she lays on the bed. Currently, no headache, no blurred visions, no earache, no runny nose, no sore throat, no cough, no dysphagia, no nausea, no abdominal pain, no chest pain or shortness of breath. No rash. She has mild chronic swelling in the legs. Denies imbalance. Admission Exam Per Admitting Provider PHYSICAL EXAMINATION: GENERAL: The patient is obese, not in acute distress. VITAL SIGNS: Temperature 36.7, pulse 68, respiratory rate 18, blood pressure 166/76, oxygen 100% on room air. HEENT: Pupils equal, round and reactive to light. Oral mucosa moist. NECK: No JVD, no neck masses. HEART: S1 and S2 heard. Regular rate and rhythm. No murmur, no gallop. RESPIRATORY SYSTEM: Normal AP diameter. No accessory muscle use. No wheezing, no crackles. ABDOMEN: Soft, bowel sounds present, nontender, no distention. CENTRAL NERVOUS SYSTEM: Cranial nerves II-XII grossly intact, nonfocal. EXTREMITIES: No edema, no erythema. Principal Diagnosis digitalis toxicity Discharge Exam CONSTITUTIONAL: WNWD, vitals as above, generally well-appearing EYES: normal conjunctivae, no scleral icterus ENT: external ear and nose normal, MMM RESPIRATORY: clear to auscultation bilaterally, no crackles, rales or wheezes, normal respiratory effort CARDIOVASCULAR: regular rate and rhythm, S1 and 2 heard without murmurs, gallops or rubs, no JVD, no peripheral edema GASTROINTESTINAL: soft, nontender, nondistended, no guarding. MUSCULOSKELETAL: no gross focal deficits. SKIN: warm and dry NEUROLOGIC: CN 2-12 grossly intact, normal cognition, no gross focal deficits. PSYCHIATRIC: alert cooperative and oriented to person, place and time. Discharge Data Allergies Allergy/AdvReac Type Severity Reaction Status Date / Time amlodipine AdvReac Severe headach/vom Verified 09/12/20 01:37 itting Penicillins AdvReac Unknown Unknown Verified 09/12/20 01:37 ChloraPrep AdvReac Intermediate red, itchy Uncoded 09/12/20 01:37 Consultations 09/12/20 02:45 ED Decision to Admit Stat 09/12/20 08:00 Consult Cardiology Routine Ordered Studies Laboratory Results WBC 9.00 K/uL (4.8-10.8) 09/13/20 05:25 RBC 3.95 M/uL (4.2-5.4) L 09/13/20 05:25 Hgb 11.8 g/dL (12.0-16.0) L 09/13/20 05:25 Hct 36.0 % (37-47) L 09/13/20 05:25 MCV 91.1 fL (80-100) 09/13/20 05:25 MCH 29.9 pg (25-34) 09/13/20 05:25 MCHC 32.8 g/dL (32-36) 09/13/20 05:25 RDW Std Deviation 51.6 fL (36.4-46.3) H 09/13/20 05:25 RDW Coeff of [place] 15.4 % (11.5-14.5) H 09/13/20 05:25 Plt Count 323 K/uL (130-400) 09/13/20 05:25 MPV 10.1 fL (7.4-10.4) 09/13/20 05:25 Immature Gran % (Auto) 0.3 % 09/12/20 05:46 Neut % (Auto) 76.7 % 09/12/20 05:46 Lymph % (Auto) 15.5 % 09/12/20 05:46 [place] % (Auto) 6.4 % 09/12/20 05:46 Eos % (Auto) 1.0 % 09/12/20 05:46 Baso % (Auto) 0.1 % 09/12/20 05:46 Neut # (Auto) 6.95 K/uL (1.4-6.5) H 09/12/20 05:46 Lymph # (Auto) 1.40 K/uL (1.2-3.4) 09/12/20 05:46 [place] # (Auto) 0.58 K/uL (0.11-0.59) 09/12/20 05:46 Eos # (Auto) 0.09 K/uL (0-0.5) 09/12/20 05:46 Baso # (Auto) 0.01 K/uL (0-0.2) 09/12/20 05:46 Immature Gran # (Auto) 0.03 K/uL (0.00-0.02) H 09/12/20 05:46 Sodium 138 mmol/L (136-145) 09/13/20 05:25 Potassium 3.3 mmol/L (3.5-5.1) L 09/13/20 05:25 Chloride 104 mmol/L (98-107) 09/13/20 05:25 Carbon Dioxide 31 mmol/L (21-32) 09/13/20 05:25 Anion Gap 3.0 (3-11) 09/13/20 05:25 BUN 22 mg/dl (7-18) H 09/13/20 05:25 Creatinine 1.14 mg/dl (0.6-1.2) 09/13/20 05:25 Est Cr Clr Drug Dosing 59.5 ml/min 09/13/20 05:25 Est GFR ( Amer) 56.8 ml/min 09/13/20 05:25 Est GFR (Non-Af Amer) 49.0 ml/min 09/13/20 05:25 BUN/Creatinine Ratio 19.4 (10-20) 09/13/20 05:25 Glucose 111 mg/dl (70-99) H 09/13/20 05:25 Calcium 9.2 mg/dl (8.5-10.1) 09/13/20 05:25 Magnesium 2.3 mg/dl (1.8-2.4) 09/13/20 12:57 Total Bilirubin 1.0 mg/dl (0.2-1) 09/12/20 01:49 Direct Bilirubin 0.3 mg/dl (0-0.2) H 09/12/20 01:49 AST 37 U/L (15-37) 09/12/20 01:49 ALT 54 U/L (12-78) 09/12/20 01:49 Alkaline Phosphatase 69 U/L (45-117) 09/12/20 01:49 Troponin I 0.082 ng/ml (0-0.045) H* 09/12/20 01:49 Total Protein 7.0 gm/dl (6.4-8.2) 09/12/20 01:49 Albumin 3.4 gm/dl (3.4-5.0) 09/12/20 01:49 Lipase 291 U/L (73-393) 09/13/20 05:25 TSH 4.150 uIu/ml (0.300-4.500) 09/12/20 01:49 Urine Color Yellow 09/12/20 09:00 Urine Appearance Clear (Clear) 09/12/20 09:00 Urine pH 6.0 (4.5-7.5) 09/12/20 09:00 Ur Specific [place] 1.022 (1.000-1.030) 09/12/20 09:00 Urine Protein Trace (Negative) H 09/12/20 09:00 Urine Glucose (UA) Negative (Negative) 09/12/20 09:00 Urine Ketones Negative (Negative) 09/12/20 09:00 Urine Blood Negative (Negative) 09/12/20 09:00 Urine Nitrite Negative (Negative) 09/12/20 09:00 Urine Bilirubin Negative (Negative) 09/12/20 09:00 Urine Urobilinogen Negative (Negative) 09/12/20 09:00 Ur Leukocyte Esterase Negative (Negative) 09/12/20 09:00 Urine WBC (Auto) 1-5 /hpf (0-5) 09/12/20 09:00 Urine RBC (Auto) 0-4 /hpf (0-4) 09/12/20 09:00 U Hyaline Cast (Auto) 1-5 /lpf (0-5) 09/12/20 09:00 U Epithel Cells (Auto) >30 /lpf (0-5) H 09/12/20 09:00 Urine Bacteria (Auto) Negative (Negative) 09/12/20 09:00 Digoxin 2.8 ng/ml (0.8-2.0) H* 09/13/20 12:57 COVID-19 Eval Order Covid19 at [facility] 09/12/20 02:58 SARS-CoV-2 (PCR) NEGATIVE (Negative) 09/12/20 02:58 Hospital Course (1) Digoxin toxicity: The patient is a 70-year-old female who presented to the hospital with digoxin toxicity. She was symptomatic with nausea and dizziness and was admitted. Digibind was not recommended by poison control. Her levels continued to decline during her stay. EKG did show evidence of digitalis toxicity. Her potassium was within the normal limit or hypokalemic. It did not exceed 5 during her stay. She had recently been started on amiodarone post pacemaker placement at the end of July. She was switched to digoxin a couple days after having been told to discontinue amiodarone for side effects. She was seen by cardiology who recommended that by day of discharge, outside of some mild nausea she really does not have other signs of dig toxicity. Digoxin levels had trende d down from 4.7 on 09/14 to 2.8 on 09/13. Dr. Mccarthy again is planning to restart her digoxin next week and continue all other home cardiac medications at this time. She is noted to have vertigo which may be secondary to amiodarone but will take up to 6 weeks to clear from her system completely. She will use meclizine as needed. There are no focal deficits or gait issues that are suggestive of stroke. Cardiology is planning to check a BMP and dig level as outpatient next week and recommends potassium replacement on discharge. Total Time Total Time Spent Total Time Spent (In Minutes): 60 Discharge Plan Discharge Items Patient Disposition: Home - Self-Care Reason For Visit: REF BY DOCTOR Discharge Diagnosis: digitalis toxicity Condition on Discharge: Good Activity: Resume your previous activity Non-emergency contact: Primary Care Provider and Local Area [employer] Systems Adminstrator Call non-emergency contact if: you have any medication questions and your symptoms worsen Follow-up/Referrals: Vince Wyatt MD [Primary Care Provider] - (Date & Time 09/18/2020 2:00 PM Provider Dennys Xavier PA-C Department [facility] ) Diet: Heart Healthy [facility] Attending Provider Instructions: Please take all medications as instructed on discharge list below. You are being given MECLIZINE to use as needed for dizziness, and your POTASSIUM supplement dose has been adjusted by your deck mate. Please follow-up with Dr. Larkin as instructed next week for blood work to check BMP and digoxin level. It is recommended that you follow-up with your primary care doctor within 1 week of discharge from the hospital. This is to ensure you are still feeling well since going home and to review how your dizziness is improving off the amiodarone and digoxin. It was a pleasure taking care of you! Please call if you have any questions or problems. You can reach a [facility] hospitalist on duty at [facility] 24 hours a day by calling [phone]. Take care of yourself. Sinai Tirado, [facility] Pending Studies at Discharge: No Stand-Alone Forms: My [facility] Medications and DC Order Prescriptions: New potassium chloride [Klor-Con M20] 20 mEq Tablet,Er Particles/Crystals 20 meq PO DAILY Qty: 30 RF: 0 meclizine 12.5 mg Tablet 12.5 mg PO TID PRN (Reason: dizziness) Qty: 20 RF: 0 Continued isosorbide dinitrate 10 mg tablet 10 mg PO BID RF: 0 spironolactone 25 mg tablet 25 mg PO QAM RF: 0 rosuvastatin 5 mg tablet 5 mg PO QAM RF: 0 famotidine [Pepcid] 20 mg Tablet 20 mg PO DAILY PRN (Reason: Heartburn) RF: 0 cholecalciferol (vitamin D3) [Vitamin D3] 25 mcg (1,000 unit) Capsule 25 mcg PO QDL RF: 0 krill oil 500 mg Capsule 500 mg PO QDL RF: 0 lorazepam [Ativan] 0.5 mg Tablet 0.5 mg PO DAILY PRN (Reason: Anxiety) RF: 0 Cline Tart 1,200 mg PO QDL RF: 0 acetaminophen [Tylenol Extra Strength] 500 mg Tablet 1,000 mg PO Q6H PRN (Reason: Pain) RF: 0 vitamin E 400 unit Capsule 400 unit PO QDL RF: 0 coenzyme Q10 [CoQ-10] 100 mg Capsule 100 mg PO QDL RF: 0 Merced-Matteo Rx 1-60-300 mg-mg-mcg tablet 1 tab PO QDL RF: 0 Eliquis 5 mg tablet 5 mg PO BID RF: 0 metoprolol tartrate 50 mg Tablet 50 mg PO BID RF: 0 hydralazine 50 mg Tablet 50 mg PO TID RF: 0 ropinirole 4 mg Tablet 4 mg PO HS RF: 0 furosemide [Lasix] 40 mg Tablet 40 mg PO QAM RF: 0 Discontinued potassium chloride 10 mEq tablet extended release 10 meq PO TID RF: 0 Discharge Orders: Discharge Order (Routine); Ordered 09/13/20 Ordered By: Sinai Tirado Admission Data Admit Date/Time: 09/12/20 03:22 Attending Provider: Sinai Tirado Admit Provider: Colby Shahid Primary Care Provider: Vince Wyatt Other Providers: Colby Shahid ; Sinan Larkin Other Interventions: Discharge Summary Assessment (RN) Last Done: 09/13/20 14:22
--- NOTE | 2020-09-13 15:38 | Communication Note ---
Date of Service: September 13, 2020 Code 44 attestation: She is a 70-year-old female was admitted with digoxin toxicity with a level of 4.7 on admission. Her symptoms have been improved and her digoxin level is 2.8 today. The chart reviewed,she was seen by the grounds worker and her current attending and it is recommended that she could be discharged safely out of the hospital. By CMS guidelines, a determination that the admission or continued stay is not medically necessary has been made by a member of the UR committee and a physician for this hospital stay, therefore a Code 44 will be completed and the Inpatient admission will be changed to outpatient. Dr Christopher Hutson Member UR Committee
--- NOTE | 2020-09-13 16:23 | Electrocardiogram Report ---
Test Reason : Blood Pressure : / mmHG Vent. Rate : 060 BPM Atrial Rate : 044 BPM P-R Int : 000 ms QRS Dur : 164 ms QT Int : 466 ms P-R-T Axes : 000 -26 168 degrees QTc Int : 466 ms Ventricular-paced rhythm Abnormal ECG When compared with ECG of 12-SEP-2020 09:07, No significant change was found Confirmed by Saúl Daniel ([id number]) on 09/13/2020 4:23:10 PM Referred By: Keith Dewitt Confirmed By:Saúl Daniel
[2020-09-14] MEDS ORDERED: POTASSIUM CHLORIDE CRTAB 20 MEQ TABCR PO SCH (09:00)
== END 2020-09-13 16:01 | disposition home or self-care (01) ==
LOC: ED 00:48 → INTOOBSV 03:22 → 2S 03:22 → SUATTDRO 03:22 → 2S 04:43